=== PATIENT | female | born 1980 | race Caucasian/White ===

== ENCOUNTER 2019-10-06 12:36 | Outpatient (CLI) | payer OTHER, SELFPAY ==
--- NOTE | ~2019-10-06 | US_ITS ---
EXAMINATION: US pelvic complete w TV EXAM DATE: 10/06/2019 13:37 INDICATION: Pelvic pain. TECHNIQUE: Pelvic transabdominal and transvaginal sonogram was performed. There are multiple graysca le and Doppler images available for interpretation. Comparison is made to prior examination from 2012. FINDINGS: Uterus measures 9.1 x 4.4 x 4.0 cm, and is morphologically normal. Endometrial stripe narayan sures 2 mm, within normal limits. There is small free pelvic fluid. Right adnexa: The ovary measures 2.6 x 2.3 x 2.0 cm and is morphologically normal. Ovarian vascular f low confirmed. Left adnexa: The ovary measures 3.2 x 3.7 x 3.4 cm and is morphologically normal, contains the domina nt physiologic follicle. Ovarian vascular flow confirmed. IMPRESSION: 1. Unremarkable pelvic ultrasound exam. Reviewed, dictated and finalized at location A.
== END 2019-10-06 12:37 | disposition home or self-care (01) ==
PROVIDERS: PCP Family Medicine Adolescent Medicine; Visit Provider Obstetrics & Gynecology
DX: R10.2 Pelvic and perineal pain (principal)
CPT/HCPCS: 76830; 76856

== ENCOUNTER 2020-01-12 15:41 | Outpatient (CLI) | payer OTHER, SELFPAY | END 2020-01-12 15:42 | disposition home or self-care (01) | PROVIDERS: PCP Family Medicine Adolescent Medicine; Visit Provider Urology | DX: N39.3 Stress incontinence (female) (male) (principal) | CPT/HCPCS: 87077; 87086; 87088 ==

== ENCOUNTER 2020-01-21 00:43 | Outpatient (CLI) | payer OTHER, SELFPAY ==
[2020-01-21 18:19] LABS: SARS-CoV-2 RNA PCR Negative
== END 2020-01-21 00:44 | disposition home or self-care (01) ==
LOC: ANHCOVIDDT 00:43
PROVIDERS: PCP Family Medicine Adolescent Medicine; Visit Provider Urology
DX: Z01.812 Encounter for preprocedural laboratory examination (principal); Z20.828 Contact with and (suspected) exposure to other viral communicable diseases
CPT/HCPCS: 87635; C9803; U0003

== ENCOUNTER 2020-01-23 01:11 | Day surgery (SDC) | payer OTHER, SELFPAY ==
[2020-01-12 13:41] VITALS: BMI 24.8
--- NOTE | 2020-01-18 19:44 | PM.IMHP ---
H&P: HPI History of Present Illness Date/Time: 01/18/20 19:44 Chief complaint: Stress Incontinence Narrative: Hilda Perez is a 39 year old female with LACY. Component of PFD as well PMFSH Social History Social History Smoking status: Never smoker Second hand tobacco smoke exposure: No Smoking end date: 05/28/08 Alcohol intake: current Drinks per week: 2 Spiritual care concerns: No Meds Home Medications and Allergies Home Medications Medication Instructions Recorded Confirmed Type Saccharomyces boulardii 250 mg 250 mg PO DAILY 12/22/19 01/12/20 History capsule Allergies Allergy/AdvReac Type Severity Reaction Status Date / Time No Known Allergies Allergy Unknown Verified 01/12/20 15:08 Exam Const: General: no acute distress HENMT: Mouth: Yes moist mucous membranes Eyes: General: appearance normal, both eyes and all related structures Resp: Effort & Inspection: normal respiratory effort GI: GI Palp: Yes Soft to palpation : Other: + urethral hypermobility Skin: General skin exam: no rashes or lesions noted Neuro: Motor exam (neuro): Normal motor muscle tone present throughout Extrem: General: normal to inspection Psych: Affect: normal affect Assessment and Plan Assessment and plan (1) LACY (stress urinary incontinence, female): Code(s): N39.3 - Stress incontinence (female) (male) Status: Acute Assessment and Plan: Urethral sling (2) Pelvic floor dysfunction: Code(s): M62.89 - Other specified disorders of muscle Status: Acute
--- NOTE | 2020-01-22 11:48 | WPDANESEPPF ---
Anes - Initial Pre Proc Eval Procedure: Operation Date: 01/23/20 10:15 Proposed Procedures p Urethral Sling - Jer Turner MD Date/Time: 01/22/20 11:48 Surgeon: Jer Turner MD Pre Op Diagnosis: Stress Incontinence Patient Data Age: 39 Gender: F Height: 1.63 m Weight: 65.77 kg Allergies Allergy/AdvReac Type Severity Reaction Status Date / Time No Known Allergies Allergy Unknown Verified 01/12/20 15:08 Home Medications Medication Instructions Recorded Confirmed Type Saccharomyces boulardii 250 mg 250 mg PO DAILY 12/22/19 01/12/20 History capsule Patient hx anesthesia problems: none Family hx anesthesia problems: none [facility] Social History Social History Smoking status: Never smoker Second hand tobacco smoke exposure: No Smoking end date: 05/28/08 Alcohol intake: current Drinks per week: 2 Spiritual care concerns: No Anes - Eval Final PreProcedure Day of Procedure 01/22/20 11:48 Patient weight: normal Heart: regular rate and rhythm Lungs: clear to auscultation and normal air movement Airway: Mallampati scale class II Neurological: alert and oriented Last oral intake: >/= 8 hours ASA classification: II Emergent: no Anesthetic plan: proceed Anesthesia type and monitoring: general GIVS and standard monitoring Informed Consent: The patient's anesthetic plan and its attendant risks and benefits were discussed with the patient/family/POA. Questions were solicited and answers provided to the satisfaction of the patient/family/POA.
--- NOTE | 2020-01-23 07:18 | WPDHPUPDATE1 ---
History and Physical Update Update Date/Time: 01/23/20 07:18 History and Physical has been reviewed, including an updated exam of the patient. There are NO changes in the patient's condition. Risks, benefits, and alternatives have been discussed and questions answered. Patient agrees to proceed with procedure.
[2020-01-23 08:30] VITALS: BP 114/78; PULSE 59; RESP 18; TEMP 36.8; O2SAT 98
[2020-01-23] MEDS: LACTATED RINGERS 1,000 ML 30 ML IV CONT (09:00)
--- NOTE | 2020-01-23 09:51 | PM.PROC ---
Procedure Note - Detailed Pre-op diagnosis: Stress Incontinence Stress urinary incontinence Post-op diagnosis: same Procedure performed: Transobturator Mid-urethral sling Cystoscopy Description of procedure: This is a patient with confirmed stress urinary incontinence. She desires correction. She understands the risks of bleeding, infection, damage to the urinary tract, lack of cure of stress incontinence, recurrence of stress incontinence, postoperative voiding dysfunction including incontinence and retention, need for ancillary procedures to loosen remove the sling, postoperative voiding dysfunction including retention and overactive bladder, hip and leg pain, dyspareunia, mesh related complications including exposure and extrusion. She agrees to proceed. She understands it will not help overactive bladder symptoms if present. She was correctly identified and informed consent obtained. She is brought to the operating room. She was given appropriate anesthesia. She was placed in the dorsal lithotomy position. All pressure points were padded. She was given appropriate perioperative antibiotics and a time-out performed. A Dolan catheter is placed. I marked out the thigh incisions anesthetize the skin and made those incisions. I anesthetized the anterior vaginal wall over the mid urethra. I made a 1 cm incision. I dissected out laterally taking great care not to injure the urethra or the vaginal wall. Passed the helical trocars 1st on the left and then on the right from the thigh incision towards the vaginal incision. Sling was connected to the trocars and brought out through the thigh incision. I tensioned the sling appropriately. I cut and removed the plastic sheaths. I closed the incision with 2 0 Vicryl. I then performed cystoscopy. There was no surgical artifact or abnormalities inside the bladder. The urethra was normal without surgical artifact. I cut the excess sling material. I closed the incisions with glue. She was awakened and transferred to the PACU in stable condition. Implants: Mid urethral sling Surgeon: Jer Turner MD Drains: No Packing: No Pathology: none sent Complications: No immediate complications Condition: stable Disposition: PACU
[2020-01-23] MEDS: ceFAZolin 2 GM/D5W 50 ML 2 GM/50 ML BAG IVPB (10:20)
[2020-01-23] MEDS: BUPIVACAINE/EPINEPHRINE 0.25% 50 ML VIAL 10 ML INFILTRATE (10:45)
[2020-01-23 10:51] VITALS: BP 116/77; PULSE 66; RESP 14; O2SAT 97
[2020-01-23 11:21] VITALS: BP 125/80; PULSE 50; RESP 14
== END 2020-01-23 11:40 | disposition home or self-care (01) ==
PROVIDERS: PCP Family Medicine Adolescent Medicine; Referring Provider Obstetrics & Gynecology; Visit Provider Urology
PROC: (CPT 57288; principal; 2020-01-23 10:15)
DX: N39.3 Stress incontinence (female) (male) (principal); M62.89 Other specified disorders of muscle; J45.909 Unspecified asthma, uncomplicated; Z79.899 Other long term (current) drug therapy
CPT/HCPCS: 57288; A9270; C1771; J0690; J2250; J2704; J3010; J7030; J7120

== ENCOUNTER 2020-06-15 14:57 | Outpatient (CLI) | payer OTHER, SELFPAY ==
[2020-06-15 17:35] LABS: Hepatitis C Virus Antibody Negative (Negative)
[2020-06-16 11:06] LABS: Rapid Plasma Reagin Non-Reactive (NonReactive)
[2020-06-18 18:57] LABS: HSV 1 IgM Screen Negative (Negative); HSV 2 IgM Screen Negative (Negative)
== END 2020-06-15 14:58 | disposition home or self-care (01) ==
LOC: ANHLAB 14:59
PROVIDERS: PCP Family Medicine Adolescent Medicine; Visit Provider Obstetrics & Gynecology
DX: Z20.2 Contact with and (suspected) exposure to infections with a predominantly sexual mode of transmission (principal)
CPT/HCPCS: 36415; 86592; 86695; 86696; 86803

== ENCOUNTER 2021-01-20 15:41 | Outpatient (CLI) | payer OTHER, SELFPAY ==
[2021-01-20 16:01] LABS: Basophils Absolute Auto 0.1 K/mm3 (0.0-0.1); Basophils Percent Auto 0.8 % (0.2-1.2); Eosinophils Absolute Auto 0.1 K/mm3 (0-0.3); Eosinophils Percent Auto 1.9 % (0-4.4); Hematocrit 40.5 % (37.0-47.0); Hemoglobin 13.7 g/dL (12.0-15.0); Immature Granulocyte Absolute 0.01 K/mm3 (0.00-0.031); Immature Granulocyte Percent A 0.2 % (0-0.5); Lymphocytes Absolute Auto 2.58 K/mm3 (0.9-3.2); Lymphocytes Percent Auto 43.7 % (18.3-44.2); Mean Corpuscular HGB Conc 33.8 g/dl (32-36); Mean Corpuscular Hemoglobin 30.5 pg (26-34); Mean Corpuscular Volume 90.2 fl (80-100); Mean Platelet Volume 8.9 fl (7.4-10.4); Monocytes Absolute Auto 0.4 K/mm3 (0.1-0.6); Monocytes Percent Auto 7.1 % (2.6-8.5); Neutrophils Absolute Auto 2.7 K/mm3 (1.3-6.7); Neutrophils Percent Auto 46.3 % (45.5-73.1); Platelet Count Result 230 k/mm3 (150-375); Red Blood Count 4.49 M/mm3 (4.2-5.4); Red Cell Distribution Width 11.3 % (11.5-14.5); White Blood Count 5.9 K/mm3 (4.5-10.0)
[2021-01-20 16:19] LABS: Alanine Aminotransferase 15 U/L (4-35); Albumin Level 4.2 g/dL (3.5-5.1); Alkaline Phosphatase 48 U/L (38-126); Anion Gap 7 mmol/L (8-16); Aspartate Amino Transferase 21 U/L (14-36); Bilirubin,Total 0.7 mg/dL (0.2-1.3); Blood Urea Nitrogen 13 mg/dL (7-17); Calcium 9.3 mg/dL (8.4-10.2); Carbon Dioxide 26 mmol/L (22-30); Chloride 101 mmol/L (98-107); Cholesterol 135 mg/dL (0-200); Estimated Glomerular Filt Rate > 60; Glucose 80 mg/dL (65-110); HDL Direct 59 mg/dL; Potassium 3.8 mmol/L (3.4-5.0); Sodium 134 mmol/L (137-145); Triglycerides 34 mg/dL (<150)
[2021-01-20 16:30] LABS: LDL Cholesterol Direct 64 mg/dL
[2021-01-20 16:47] LABS: Thyroid Stimulating Hormone 0.981 uIU/mL (0.465-4.680)
[2021-01-20 21:09] LABS: Vitamin D 25 Hydroxy 53.4 ng/mL
== END 2021-01-20 15:42 | disposition home or self-care (01) ==
LOC: ANHLAB 15:43
PROVIDERS: PCP Family Medicine Adolescent Medicine; Visit Provider Obstetrics & Gynecology
DX: N92.6 Irregular menstruation, unspecified (principal)
CPT/HCPCS: 36415; 80053; 80061; 82306; 84443; 85025

== ENCOUNTER 2021-05-04 07:44 | Outpatient (CLI) | payer OTHER, SELFPAY ==
--- NOTE | ~2021-05-04 | US_ITS ---
EXAMINATION: US abdomen complete DATE: 05/04/2021 08:29 INDICATION: Abdominal pain TECHNIQUE: Multiple grayscale and Doppler ultrasound images of the abdomen were obtained. COMPARISON: None available FINDINGS: Bowel gas obscures visualization of the pancreas. The visualized portions of the pancreas a re unremarkable. The liver is normal with normal echogenicity and echotexture. No surface nodularity. Normal hepatopetal flow in the main portal vein. The gallbladder is normal with no abnormal wall thi ckening, pericholecystic fluid or stones. The normal common bile duct measures 3 mm. There was no son ographic Goodson sign. The visualized portions of the aorta and inferior vena cava are normal. The right kidney measures 11.3 x 4.9 x 4.1 cm. The left kidney measures 9.1 x 4.7 x 4.5 cm. The kidne ys demonstrate normal parenchymal echogenicity. There is no hydronephrosis. The spleen is normal in a ppearance and measures 9.5 cm. IMPRESSION: 1. No sonographic correlate for the patient's symptoms. Reviewed, dictated and finalized at location A. 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
== END 2021-05-04 07:45 | disposition home or self-care (01) ==
PROVIDERS: PCP Family Medicine Adolescent Medicine; Visit Provider Nurse Practitioner Family
DX: R10.9 Unspecified abdominal pain (principal)
CPT/HCPCS: 76700

== ENCOUNTER 2022-04-04 15:34 | Outpatient (CLI) | payer OTHER, SELFPAY ==
[2022-04-04 15:50] LABS: Basophils Absolute Auto 0.1 K/mm3 (0.0-0.1); Basophils Percent Auto 0.6 % (0.2-1.2); Eosinophils Absolute Auto 0.1 K/mm3 (0-0.3); Eosinophils Percent Auto 1.4 % (0-4.4); Hematocrit 41.5 % (37.0-47.0); Hemoglobin 13.9 g/dL (12.0-15.0); Immature Granulocyte Absolute 0.02 K/mm3 (0.00-0.031); Immature Granulocyte Percent A 0.3 % (0-0.5); Lymphocytes Absolute Auto 2.37 K/mm3 (0.9-3.2); Lymphocytes Percent Auto 30.4 % (18.3-44.2); Mean Corpuscular HGB Conc 33.5 g/dl (32-36); Mean Corpuscular Hemoglobin 31.5 pg (26-34); Mean Corpuscular Volume 94.1 fl (80-100); Mean Platelet Volume 8.6 fl (7.4-10.4); Monocytes Absolute Auto 0.6 K/mm3 (0.1-0.6); Monocytes Percent Auto 7.3 % (2.6-8.5); Neutrophils Absolute Auto 4.7 K/mm3 (1.3-6.7); Platelet Count Result 273 k/mm3 (150-375); Red Blood Count 4.41 M/mm3 (4.2-5.4); Red Cell Distribution Width 12.4 % (11.5-14.5); White Blood Count 7.8 K/mm3 (4.5-10.0)
[2022-04-04 16:06] LABS: Alanine Aminotransferase 17 U/L (6-35); Albumin Level 4.6 g/dL (3.5-5.1); Alkaline Phosphatase 63 U/L (38-126); Anion Gap 12 mmol/L (8-16); Aspartate Amino Transferase 21 U/L (14-36); Bilirubin,Total 0.3 mg/dL (0.2-1.3); Blood Urea Nitrogen 16 mg/dL (7-17); Calcium 9.2 mg/dL (8.4-10.2); Carbon Dioxide 29 mmol/L (22-30); Chloride 99 mmol/L (98-107); Cholesterol 169 mg/dL (0-200); Estimated Glomerular Filt Rate > 60; Glucose 92 mg/dL (65-110); HDL Direct 90 mg/dL; Sodium 140 mmol/L (137-145); Triglycerides 51 mg/dL (<150)
[2022-04-04 16:16] LABS: LDL Cholesterol Direct 62 mg/dL
== END 2022-04-04 15:35 | disposition home or self-care (01) ==
LOC: ANHLAB 15:36
PROVIDERS: PCP Internal Medicine; Visit Provider Nurse Practitioner
DX: N90.89 Other specified noninflammatory disorders of vulva and perineum (principal); Z13.29 Encounter for screening for other suspected endocrine disorder; Z13.220 Encounter for screening for lipoid disorders
CPT/HCPCS: 36415; 80053; 80061; 85025

== ENCOUNTER 2022-09-15 13:52 | Outpatient (CLI) | payer OTHER, SELFPAY ==
--- NOTE | ~2022-09-15 | MMUS_ITS ---
EXAMINATION: MM diag nalini implant LT w ellen, US breast LT limited HISTORY: Left breast pain TECHNIQUE: Craniocaudal, mediolateral, and mediolateral oblique 3-D tomosynthesis images with implant displacement of the left breast were performed and synthetic 2-D images were generated. Craniocauda l, mediolateral oblique, and mediolateral views of the left breast without implant displacement were obtained using full field digital mammography. CAD analysis was submitted and interpreted. High resol ution limited left breast ultrasound was performed. COMPARISON: No prior mammogram is currently available for comparison. BREAST PARENCHYMAL COMPOSITION: The breasts are heterogeneously dense, which may obscure small masses . FINDINGS: MAMMOGRAPHIC FINDINGS: No suspicious mass, calcification, or architectural distortion are identified to suggest malignancy. No mammographic correlate is identified for the patient's reported left breast pain. ULTRASOUND: There is no evidence of focal abnormal solid or cystic lesion in the vicinity of the patient's report ed left breast pain. IMPRESSION: 1. No specific mammographic or sonographic correlate is identified for the patient's reported left br east pain. Further evaluation at this time should be based on clinical assessment. Continued follow-u p physical examination is recommended. 2. Recommend routine screening mammography in one year. BI-RADS Category 1: Negative Reviewed, dictated and finalized at location A. IMPRESSION: 1. No specific mammographic or sonographic correlate is identified for the maggy ent's reported left breast pain. Further evaluation at this time should be base d on clinical assessment. Continued follow-up physical examination is recommend ed. 2. Recommend routine screening mammography in one year. BI-RADS Category 1: Negative
== END 2022-09-15 13:53 | disposition home or self-care (01) ==
PROVIDERS: PCP Internal Medicine; Visit Provider Registered Nurse
DX: N64.4 Mastodynia (principal)
CPT/HCPCS: 76642; 77061; 77065; G0279

== ENCOUNTER 2022-10-10 12:47 | Outpatient (CLI) | payer OTHER, SELFPAY ==
[2022-10-10 14:08] LABS: Hepatitis B Surface Antigen Negative (Negative)
[2022-10-10 14:12] LABS: HIV 1/2 Ab P24 Ag Result Negative (Negative)
[2022-10-10 14:25] LABS: Hepatitis C Virus Antibody Negative (Negative)
[2022-10-11 10:57] LABS: Rapid Plasma Reagin Non-Reactive (NonReactive)
[2022-10-16 17:41] LABS: HSV 1 IgM Screen Negative (Negative); HSV 2 IgM Screen Negative (Negative)
== END 2022-10-10 12:48 | disposition home or self-care (01) ==
PROVIDERS: PCP Internal Medicine; Visit Provider Registered Nurse
DX: Z20.2 Contact with and (suspected) exposure to infections with a predominantly sexual mode of transmission (principal)
CPT/HCPCS: 36415; 86592; 86695; 86696; 86703; 86803; 87340; G0432

== ENCOUNTER 2022-11-01 19:27 | Emergency (ER) | payer OTHER, SELFPAY ==
[2022-11-01] VITALS (12 sets, daily range): BP systolic 105–136; BP diastolic 67–96; PULSE 64–91; RESP 15–18; TEMP 37.1; O2SAT 95–100
--- NOTE | ~2022-11-01 | CT_ITS ---
CT of the Abdomen and Pelvis: Indication: Abdominal pain Technique: 2.5 mm axial scans were obtained through the abdomen and pelvis following intravenous adm inistration of 100 cc of Omnipaque 350. Dose reduction technique was used on this scan by utilizing a utomated exposure control and iterative reconstruction technique. The dose-length product (DLP) was 3 81.57 mGy-cm. COMPARISON: 09/23/2017 Findings: Scans through the lung bases are unremarkable. The liver, spleen, pancreas, gallbladder, adrenals and kidneys are within normal limits. No evidence of aortic aneurysm. No lymphadenopathy. No bowel obstruction or bowel wall thickening. There is no evidence to suggest acute appendicitis. Images through the pelvis were performed. Urinary bladder unremarkable. 4.3 cm left adnexal cyst pres ent. No other definite adnexal mass seen. There is trace free fluid in the pelvis. Impression: 4.3 cm probable left ovarian cyst. Consider pelvic ultrasound for further evaluation if indicated. Trace free fluid in the pelvis, nonspecific. Reviewed, dictated and finalized at location . Impression: 4.3 cm probable left ovarian cyst. Consider pelvic ultrasound for further evalu ation if indicated. Trace free fluid in the pelvis, nonspecific.
[2022-11-01 19:49] LABS: Basophils Percent Auto 0.2 % (0.2-1.2); Eosinophils Percent Auto 0.8 % (0-4.4); Hematocrit 41.9 % (37.0-47.0); Hemoglobin 14.2 g/dL (12.0-15.0); Immature Granulocyte Absolute 0.01 K/mm3 (0.00-0.031); Immature Granulocyte Percent A 0.2 % (0-0.5); Lymphocytes Absolute Auto 0.39 K/mm3 (0.9-3.2); Lymphocytes Percent Auto 7.6 % (18.3-44.2); Mean Corpuscular HGB Conc 33.9 g/dl (32-36); Mean Corpuscular Hemoglobin 31.2 pg (26-34); Mean Corpuscular Volume 92.1 fl (80-100); Mean Platelet Volume 8.7 fl (7.4-10.4); Monocytes Absolute Auto 0.3 K/mm3 (0.1-0.6); Monocytes Percent Auto 6.1 % (2.6-8.5); Neutrophils Absolute Auto 4.4 K/mm3 (1.3-6.7); Neutrophils Percent Auto 85.1 % (45.5-73.1); Platelet Count Result 192 k/mm3 (150-375); Red Blood Count 4.55 M/mm3 (4.2-5.4); Red Cell Distribution Width 13.4 % (11.5-14.5); White Blood Count 5.1 K/mm3 (4.5-10.0)
[2022-11-01 20:01] LABS: Alanine Aminotransferase 18 U/L (6-35); Albumin Level 3.7 g/dL (3.5-5.1); Alkaline Phosphatase 44 U/L (38-126); Anion Gap 2 mmol/L (8-16); Aspartate Amino Transferase 26 U/L (14-36); Bilirubin,Total 1.1 mg/dL (0.2-1.3); Blood Urea Nitrogen 17 mg/dL (7-17); Calcium 8.1 mg/dL (8.4-10.2); Carbon Dioxide 28 mmol/L (22-30); Chloride 105 mmol/L (98-107); Estimated CRCL calculation 71 ml/min; Estimated Glomerular Filt Rate > 60; Glucose 108 mg/dL (65-110); Lipase 63 U/L (23-300); Potassium 3.7 mmol/L (3.4-5.0); Sodium 135 mmol/L (137-145)
[2022-11-01 20:03] LABS: Appearance Urine Clear (Clear); Bacteria Urine Rare /hpf; Bilirubin Urine Negative (Negative); Blood Urine Negative (Negative); Color Urine Dark Yellow (Yellow); Glucose Urine UA Negative (Negative); Ketones Urine Trace mg/dL (Negative); Leukocyte Esterase Ur 1+ LEU/UL (Negative); Nitrate Urine Negative (Negative); Non Pathogenic Casts 0-2; Protein Urine Trace mg/dL (Negative); RBC Urine 0-2 /hpf (0-2); Specific Grav Ur 1.032 (1.001-1.035); Squamous Epithelial Cell Urine Few /hpf (Few); pH Urine 5.5 (5.0-9.0)
[2022-11-01 20:11] LABS: Add Urine Microscopic? YES
[2022-11-01] MEDS: ONDANSETRON INJ 4 MG/2 ML VIAL IV PUSH (23:10)
[2022-11-01] MEDS: SODIUM CHLORIDE 0.9% IV 1,000 ML 999 ML IV CONT (23:10)
[2022-11-01] MEDS: HYDROmorphone HCL INJ (*CRX) 1 MG/ML SYR 0.5 MG IV PUSH (23:23)
--- NOTE | 2022-11-01 23:54 | ED.GENADULT ---
HPI - General Adult General Chief complaint: Abdominal Pain Stated complaint: abd pain Time Seen by Provider: 11/01/22 21:32 History of Present Illness HPI narrative: this is a 41-year-old female presenting ED with chief complaint of nausea vomiting diarrhea and abdominal pain x1 day. When the patient woke this morning she had an achy pain throughout her abdomen that radiates to her back. Five out 10 intensity and constant. She has never had this before there are no exacerbating alleviating symptoms. Was associated with a fever, nausea vomiting and diarrhea. She has no chest pain difficulty breathing URI symptoms or dysuria. Related Data Home Medications Medication Instructions Recorded Confirmed congaplex .Route 01/20/21 03/15/22 albuterol sulfate 90 mcg/actuation 1 puff inhalation Q4H PRN 03/22/21 03/15/22 aerosol inhaler allergy shots IM 02/07/22 03/15/22 collagen 1 cap BYMOUTH DAILY 03/07/22 various vitamins 1 tablet BYMOUTH DAILY 03/07/22 etonogestrel 68 mg subdermal 1 implant subdermal ONCE 08/29/22 implant (Nexplanon) Allergies Allergy/AdvReac Type Severity Reaction Status Date / Time No Known Allergies Allergy Unknown Verified 11/01/22 21:43 [facility] Past Medical History Medical History Asthma HSV-2 (herpes simplex virus 2) infection Seasonal allergies Vaginal delivery Surgical History Surgical History H/O breast augmentation History of bladder surgery History of dilation and curettage Family History Family History Grandparent Diabetes mellitus, Onset Age: 75 Social History Social History Smoking status: Former smoker Second hand tobacco smoke exposure: No Smoking end date: 05/28/08 Alcohol intake: current Drinks per week: 2 Substance use: never Lack of Transportation: No Lack of Food: Never True Current Housing: I Have Housing Concerned About Future Housing: No Difficulty Paying Gas/Electric Bills: No Difficulty Paying for Meds: No Currently Unemployed: No Education: Master's Degree or Higher Difficulty w/ Childcare or Family Care: No Living arrangements: with family Occupation/Education: occupation Gender identity (if verbalized by the patient): Female Sexual Orientation (if Verbalized by the Patient): Straight or Heterosexual Spiritual care concerns: No Exam Narrative: APPEARANCE: No apparent distress. Patient is pleasant polite Head: atraumatic. EYES: EOMI, NOSE: Atraumatic NECK: Trachea midline RESPIRATORY: No increased rate of breathing CARDIOVASCULAR: RRR, ABDOMINAL: abdomen is soft, With mild tenderness in the right lower quadrant, no guarding or rebound. MUSCULOSKELETAl: No obvious deformities NEURO: Alert. Moving 4/4 extremities SKIN:: Warm, dry. Normal color PSYCHIATRIC: Normal affect Course Vital Signs Vital signs: Vital Signs Temperature 98.7 F 11/01/22 19:36 Pulse Rate 91 11/01/22 19:36 Respiratory Rate 18 11/01/22 19:36 Blood Pressure 128/75 11/01/22 19:36 Pulse Oximetry 99 11/01/22 19:36 Oxygen Delivery Room Air 11/01/22 19:36 Temperature 98.7 F 11/01/22 19:36 Pulse Rate 64 11/01/22 23:25 Respiratory Rate 15 11/01/22 23:25 Blood Pressure 136/96 H 11/01/22 23:25 Pulse Oximetry 98 11/01/22 23:25 Oxygen Delivery Room Air 11/01/22 19:36 Medical Decision Making [facility] Narrative Medical decision making narrative: -Presentation: 41-year-old female presenting with 1 day of fevers nausea vomiting diarrhea and right lower quadrant tenderness. 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
--- NOTE | 2022-11-02 00:11 | PC.NURSE ---
Pt received 2L of normal saline per Dr. Denise. Pharmacy cancelled original 2L bolus order and replaced it with 1L bolus.
[2022-11-02 00:13] VITALS: BP 105/75; PULSE 72; RESP 16; O2SAT 98
== END 2022-11-02 00:13 | disposition home or self-care (01) ==
PROVIDERS: Emergency Provider Emergency Medicine; PCP Internal Medicine
DX: K52.9 Noninfective gastroenteritis and colitis, unspecified (principal); J45.909 Unspecified asthma, uncomplicated; Z87.891 Personal history of nicotine dependence; R82.998 Other abnormal findings in urine
CPT/HCPCS: 36415; 74177; 80053; 81001; 81025; 83690; 85025; 87086; 96361; 96365; 96375; 99284; J0131; J1170; J2405; J7030; Q9967

== ENCOUNTER 2022-11-16 12:47 | Outpatient (CLI) | payer OTHER, SELFPAY ==
--- NOTE | ~2022-11-16 | US_ITS ---
EXAMINATION: US pelvic complete w TV DATE: 11/16/2022 14:18 INDICATION: Left ovarian cyst Comparison:No prior studies for comparison. TECHNIQUE: Multiple transabdominal and endovaginal sonographic images of the pelvis performed. FINDINGS: The uterus measures 8.5 x 3.6 x 4.9 cm. The endometrial complex measures 4 mm. The right ovary is not visualized. Left ovary measures 2.7 x 1.6 x 2.2 cm and contains a 2.2 cm cyst. There is no free fluid in the pelvis. There are no abnormal masses seen on either side. IMPRESSION: 1. Left ovarian cyst measures 2.2 cm. Reviewed, dictated and finalized at location L.
== END 2022-11-16 12:48 | disposition home or self-care (01) ==
PROVIDERS: PCP Internal Medicine; Visit Provider Registered Nurse
DX: N83.202 Unspecified ovarian cyst, left side (principal)
CPT/HCPCS: 76830; 76856

== ENCOUNTER 2023-08-13 07:58 | Outpatient (CLI) | payer OTHER, SELFPAY ==
--- NOTE | ~2023-08-13 | MM_ITS ---
EXAMINATION: MM scrn nalini implant BI w ellen HISTORY: Screening mammogram TECHNIQUE: Craniocaudal and mediolateral oblique 3-D tomosynthesis images with implant displacement a nd synthetic 2-D images were generated. Craniocaudal and mediolateral oblique views of the breasts wi thout implant displacement were obtained using full field digital mammography. CAD analysis was submi tted and interpreted. COMPARISON: 09/15/2022 BREAST PARENCHYMAL COMPOSITION: Dense: The breasts are heterogeneously dense, which may obscure small masses FINDINGS: There is no evidence of suspicious mass, calcification, or architectural distortion to sugg est malignancy in either breast. There has been no suspicious interval change. IMPRESSION: 1. No mammographic evidence of malignancy. 2. Recommend routine screening mammography in one year. BI-RADS Category 1: Negative Reviewed, dictated and finalized at location A.
== END 2023-08-13 07:59 | disposition home or self-care (01) ==
LOC: ANHIMG 08:00
PROVIDERS: PCP Internal Medicine; Visit Provider Nurse Practitioner
DX: Z12.31 Encounter for screening mammogram for malignant neoplasm of breast (principal)
CPT/HCPCS: 77063; 77067

== ENCOUNTER 2023-11-07 09:37 | Outpatient (CLI) | payer OTHER, SELFPAY | END 2023-11-07 09:38 | disposition home or self-care (01) | LOC: ANHIMG 09:38 | PROVIDERS: PCP Internal Medicine; Visit Provider Nurse Practitioner | DX: M79.672 Pain in left foot (principal) | CPT/HCPCS: 73630 ==

== ENCOUNTER 2024-08-13 08:07 | Outpatient (CLI) | payer OTHER, SELFPAY ==
--- NOTE | ~2024-08-13 | MM_ITS ---
EXAMINATION: MM scrn nalini implant BI w ellen HISTORY: Screening mammogram TECHNIQUE: Craniocaudal and mediolateral oblique 3-D tomosynthesis images with implant displacement a nd synthetic 2-D images were generated. Craniocaudal and mediolateral oblique views of the breasts wi thout implant displacement were obtained using full field digital mammography. CAD analysis was submi tted and interpreted. COMPARISON: Comparison to multiple prior studies sequentially, with oldest reviewed study dated 09/15. BREAST PARENCHYMAL COMPOSITION: Dense: The breasts are heterogeneously dense, which may obscure small masses FINDINGS: There is no evidence of suspicious mass, calcification, or architectural distortion to sugg est malignancy in either breast. There has been no suspicious interval change. IMPRESSION: 1. No mammographic evidence of malignancy. 2. Recommend routine screening mammography in one year. BI-RADS Category 1: Negative Reviewed, dictated and finalized at location []
--- OUTSIDE RECORDS SUMMARY | 2024-08-13 08:18 | XMS_ITS | Clinical Summary ---
Author Organization [facility] Address [address] [place] [id number] Care Team Providers Care Advanced Analytics Associate Name Role Phone Wilner Lewis MD Primary Care Provider [phone] Medications NEXPLANON 68 MG SC implant 04/01/2020 Active ibuprofen 200 MG tablet Take 200 mg by mouth every 6 (six) hours as needed for Pain. Active Active Problems No known active problems Family History Medical History Relation Comments No Known Problems Brother No Known Problems Father No Known Problems Maternal Aunt No Known Problems Maternal Grandfather No Known Problems Maternal Grandmother No Known Problems Maternal Uncle No Known Problems Mother No Known Problems Paternal Aunt No Known Problems Paternal Grandmother No Known Problems Paternal Uncle No Known Problems Sister Relation Status Comments Brother Father Maternal Aunt Maternal Grandfather Maternal Grandmother Maternal Uncle Mother Paternal Aunt Paternal Grandmother Paternal Uncle Sister Social History Tobacco Use Types Packs/Day Years Used Date Smoking Tobacco: Never Smokeless Tobacco: Never Tobacco Cessation:Counseling Given: No Alcohol Use Standard Drinks/Week Comments Yes 0 (1 standard drink = 0.6 oz pur e alcohol) socially PHQ-2 Answer Date Recorded PHQ-2 Score - If the patient scores above 3, please move on to questions 3-9 0 08/16/2020 Comments Unknown Sex and Gender Information Value Date Recorded Sex Assigned at Not on file Legal Sex Female 7:33 PM CDT Gender Identity Not on file Sexual Orientation Not on file Last Filed Vital Signs Vital Sign Reading Time Taken Comments Blood Pressure 110/66 08/16/2020 10:59 AM CDT Pulse 59 08/16/2020 10:59 AM CDT Temperature - - Respiratory Rate - - Oxygen Saturation - - Inhaled Oxygen Concentration - - Weight 72.1 kg (159 lb) 08/16/2020 10:59 AM CDT Height 162.6 cm (5' 4 ) 08/16/2020 10:59 AM CDT Body Mass Index 27.29 08/16/2020 10:59 AM CDT Plan of Treatment Health Maintenance Due Date Last Done Comments Cervical Cancer Screening Pa p Smear (Age 30 to 64) Every 3 Years 1980 Annual Physical 1985 Hepatitis C 2000 DTaP, Tdap and Td Vaccines ( 1 - Tdap) 2001 Hepatitis B Vaccines (1 of 3 - 19+ 3-dose series) 2001 Cervical Cancer Screening Pa p with HPV Testing (Age 30 to 64) Every 5 Years 2012 Cervical Cancer Screening with HPV 2012 Mammogram Screening 2022 COVID-19 Vaccine (2023-2 5 season) 2024 Influenza Adult (#1) 2024 HPV Vaccines Aged Out No longer eligi ble based on patient's age to complete this topic Meningococcal B Vaccine Aged Out No l onger eligible based on patient's age to complete this topic Meningococcal Vaccine Aged Out No bebeto bob eligible based on patient's age to complete this topic Pneumococcal Vaccine: Pediat rics (0 to 5 Years) and At-Risk Patients (6 to 64 Years) Aged Out No longer eligible b ased on patient's age to complete this topic RSV Immunizations Under 20 Months Aged Out No longer eligible based on patient's age to complete this topic Insurance * Guarantor: Hilda Perez Account Type Relation to Patient Date of Phone Billing Address Personal/Family Self 1980 [phone] (Work) [address] [place] [address] [employer] Care Teams Advanced Analytics Associate Relationship Specialty Start Date End Date Wilner Lewis MD [address] [address] PCP - General FAMILY PRACTICE 08/16/20
--- OUTSIDE RECORDS SUMMARY | 2024-08-13 08:18 | XMS_ITS ---
Author Organization [facility] Address [address] [place] [address] Care Team Providers Care Customer Associate Name Role Phone Galilea Oliveros Primary Care Provider Michelle Vela Unavailable [phone] Wilner Wade Unavailable [phone] REASON FOR VISIT SCIT - Traditional Schedule Allergy Immunotherapy (Week ) Encounters Encounter Location Date Provider Diagnosis [facility] [address] [place] [address] 07/10/2024 Wilner Wade Allergic rhinitis du e [...] scheduled, Jana son: Provider Name:Wilner Wade , 08/13/2024 03:30:00 PM, [address], [address], [place], [address], Progress Notes * Santiago SOFIAOB:1980 (43 yo F)Acc No.[id number]:07/10/2024 SCIT-Aeroallergen Patient: Hilda HANLEY Provider: Callie Wade MD :1980 A ge:43 Y S ex:Female Date:07/10/2024 Address:[address] [place] [address] Pcp:Galilea Oliveros Subjective: * Chief Complaints: * [...] Information: * Visit Code: * Procedure Codes: 54452 IMMUNOTHERAPY INJECTIONS. * Electronic signature of Chana Wade MD, FAAAAI on 08/13/2024 at 08:18 AM CDT Sign off status: Pending * Provider: Callie Wade MD Date: 0 07/10/2024 Generated for Clem mckenzie/Kelvin/Mu on: 0 08/13/2024 08:18 AM CDT History and Physical Notes * HPI [...]
--- OUTSIDE RECORDS SUMMARY | 2024-08-13 08:18 | XMS_ITS ---
Author Organization [facility] Address [address] [place] [address] Care Team Providers Care Potato Chip Maker Name Role Phone Galilea Oliveros Primary Care Provider Radha francis RubensMichelle Unavailable [phone] Wilner Wade Unavailable [phone] REASON FOR VISIT SCIT - Traditional Schedule Allergy Immunotherapy (Week ) Medications Medication SIG (Take, Route, Frequency, Duration) Notes Start Date End Date Status Xyzal Allergy 24HR 5 MG 1 tablet PO daily for 30 Not-Taking Singulair 10 MG 1 tab(s) orally on days of immunotherapy for 90 days Not-Taking ZANTAC 150 150 MG 1 TAB(S) ORALLY ON DAYS OF IMMUNOTHERAPY. for 90 DAYS *Please review for potential replacement for e-prescription and drug interaction check* Not-Taking Benadryl Allergy 25 MG 1 cap(s) orally PRN Not-Taki ng Sudafed 30 MG 1 tab(s) orally every 6 hours, prn Not-Taking PROAIR HFA 90 MCG/INH 2 PUFF(S) INHALED 4 TIMES A DAY, PRN *Please review for potential replacement for e-prescription and drug interaction check* Not-Taking Nexplanon 68 MG 1 ea subcutaneously once Active SIT (TRADITIONAL) VARIABLE PER SCHEDULE SC PER SCHEDULE for TO BE DETERMINED *Please review for potential replacement for e-prescription and drug interaction check* Active Pataday 0.2 % 1 gtt in each affected eye once a day, PRN for 30 day(s) Not-Taking Xyzal Allergy 24HR 5 MG 1 tablet PO Qday, PRN Not-Taking ZyrTEC Allergy 10 MG 1 tab(s) orally on days of shots Active Airsupra 90 MCG-80 MCG/INH 2 INH INHALED 4 TIMES A DAY *Please review and pick correct strength-formula tion from [employer] options. If intended option is not shown, discontinue and re-order from Quick Search* Active SIT (TRADITIONAL) VARIABLE PER SCHEDULE SC PER SCHEDULE for 1 DAYS *Please review for potential replacement for e-prescription and drug interaction check* Active Auvi-Q 0.3 MG/0.3ML as directed intramuscularly once for 30 days Active ALBUTEROL (EQV-PROVENTIL HFA) 90 MCG/INH 2 PUFF(S) INHALED EVERY 6 HOURS *Please review for potential replacement for e-prescription and drug interaction check* Active SIT (CLUSTER) variable per schedule per schedule for 1 days Active EPINEPHRINE AUTO-INJECTOR 0.3 mg as directed intramuscularly once for 1 days Active NASAL WASHES N/A as directed intranasally as needed for 30 Active ZYRTEC 10 mg 1 tab(s) orally on days of shots Active AIRSUPRA 90 mcg-80 mcg/inh 2 INH inhaled 4 times a day Active SINGULAIR 10 mg 1 tab(s) orally on days of immunotherapy for 90 days Not-Taking XYZAL 5 mg 1 tablet PO daily for 30 Not-Taking NASACORT ALLERGY 24HR 55 mcg/inh 2 spray(s) intranasally once a day for 30 day(s) Not-Taking BENADRYL 25 mg 1 cap(s) orally PRN Not-Taking SUDAFED 30 mg 1 tab(s) orally every 6 hours, prn Not-Taking NEXPLANON 68 mg 1 ea subcutaneously once Active PATADAY 0.2% 1 gtt in each affected eye once a day, PRN for 30 day(s) Not-Taking XYZAL 5 mg 1 tablet PO Qday, PRN Not-Taking SIT (CLUSTER) VARIABLE PER SCHEDULE SC PER SCHEDULE for TO BE DETERMINED *Please review for potential replacement for e-prescription and drug interaction check* Not-Taking AUVI-Q 0.3 mg as directed intramuscularly once for 30 days Active OLOPATADINE HYDROCHLORIDE 665 MCG/INH 2 SPRAY(S) INTRANASALLY 2 TIMES A DAY, PRN for 30 DAY(S) *Please review for potential replacement for e-prescription and drug interaction check* Not-Taking Nasacort Allergy 24HR 55 MCG/ACT 2 spray(s) intranasally once a day for 30 day(s) Not-Taking Encounters Encounter Location Date Provider Diagnosis [facility] [address] [facility] [address] [place] [address] 07/16/2024 Wilner Mauro Allergic rhinitis du e to pollen J30.1 ; Other allergic rhinitis J30.89 ; Allergic rhinitis due to animal (cat) (dog) hair and dander J30.81 and Other chronic allergic conjunctivitis H10.45 Assessments Encounter Date Diagnosis (ICD Code) Assessment Notes Treatment Notes Treatment Clinical Notes Section Notes 07/16/2024 Allergic rhinitis due to pollen (ICD-10 - J30.1) 07/16/2024 Other allergic rhinitis (ICD-10 - J30.89) 07/16/2024 Allergic rhinitis due to animal (cat) (dog) hair and dander (ICD-10 - J30.81) 07/16/2024 Other chronic allergic conjunctivitis (ICD-10 - H10.45) Plan Of Treatment Next Appt Details Follow Up: As scheduled, Jana son: Provider Name:Wilner Jeanne Mauro , 08/13/2024 03:30:00 PM, [address], [address], [place], [address], Progress Notes * Santiago SOFIAOB:1980 (43 yo F)Acc No.[id number]:07/16/2024 SCIT-Aeroallergen Patient: Hilda HANLEY Provider: Callie Wade MD :1980 A ge:43 Y S ex:Female Date:07/16/2024 Address:[address] [place], [place] [id number] Pcp:Galilea Oliveros Subjective: * Chief Complaints: * S CIT - Traditional Schedule Allergy Immunotherapy (Week ) * HPI: * Introduction: The patient is [...] immunotherapy) is on file. * Medical History: * Surgical History: * Hospitalization/Major Diagno stic Procedure: * Medications: T akingAUVI-Q 0.3 mg kit as directed intramuscularly once NEXPLANON 68 mg implant 1 ea subcutaneously once NASAL WASHES N/A 1 quart of sterilized tap water or distilled water, 1 tsp NaCl, 1 pinch of baking soda as directed intranasally as needed ZYRTEC 10 mg tablet 1 tab(s) orally on days of shots AIRSUPRA 90 mcg-80 mcg/inh aerosol 2 INH inhaled 4 times a day SIT (CLUSTER) variable see record per schedule per schedule EPINEPHRINE AUTO-INJECTOR 0.3 mg kit as directed intramuscularly once ZyrTEC Allergy 10 MG Tablet 1 tab(s) orally on days of shots Airsupra 90 MCG-80 MCG/INH AEROSOL 2 INH INHALED 4 TIMES A DAY , Notes to Pharmacist: *Please review and pick correct strength-formulation from [employer] options. If intended option is not shown, discontinue and re-order from Quick Search*SIT (TRADITIONAL) VARIABLE SEE RECORD PER SCHEDULE SC PER SCHEDULE , Notes to Pharmacist: *Please review for potential replacement for e-prescription and drug interaction check*Auvi-Q 0.3 MG/0.3ML Solution Auto-injector as directed intramuscularly once ALBUTEROL (EQV-PROVENTIL HFA) 90 MCG/INH AEROSOL 2 PUFF(S) INHALED EVERY 6 HOURS , Notes to Pharmacist: *Please review for potential replacement for e-prescription and drug interaction check*Nexplanon 68 MG Implant 1 ea subcutaneously once SIT (TRADITIONAL) VARIABLE SEE RECORD PER SCHEDULE SC PER SCHEDULE , Notes to Pharmacist: *Please review for potential replacement for e-prescription and drug interaction check*Taking AUVI- Q 0.3 mg kit as directed intramuscularly once Taking NEXPLANON 68 mg implant 1 ea subcutaneously once Taking NASAL WASHES N/A 1 quart of sterilized tap water or distilled water, 1 tsp NaCl, 1 pinch of baking soda as directed intranasally as needed Taking ZYRTEC 10 mg tablet 1 tab(s) orally on days of shots Taking AIRSUPRA 90 mcg-80 mcg/inh aerosol 2 INH inhaled 4 times a day Taking SIT (CLUSTER) variable see record per schedule per schedule Taking EPINEPHRINE AUTO-INJECTOR 0.3 mg kit as directed intramuscularly once Taking ZyrTEC Allergy 10 MG Tablet 1 tab(s) orally on days of shots Taking Airsupra 90 MCG-80 MCG/INH AEROSOL 2 INH INHALED 4 TIMES A DAY , Notes to Pharmacist: *Please review and pick correct strength-formulation from [employer] options. If intended option is not shown, discontinue and re-order from Quick Search*Taking SIT (TRADITIONAL) VARIABLE SEE RECORD PER SCHEDULE SC PER SCHEDULE , Notes to Pharmacist: *Please review for potential replacement for e-prescription and drug interaction check*Taking Auvi-Q 0.3 MG/0.3ML Solution Auto-injector as directed intramuscularly once Taking ALBUTEROL (EQV-PROVENTIL HFA) 90 MCG/INH AEROSOL 2 PUFF(S) INHALED EVERY 6 HOURS , Notes to Pharmacist: *Please review for potential replacement for e-prescription and drug interaction check*Taking Nexplanon 68 MG Implant 1 ea subcutaneously once Taking SIT (TRADITIONAL) VARIABLE SEE RECORD PER SCHEDULE SC PER SCHEDULE , Notes to Pharmacist: *Please review for potential replacement for e-prescription and drug interaction check*Not-Taking/PRNPATADAY 0.2% solution 1 gtt in each affected eye once a day, PRN XYZAL 5 mg tablet 1 tablet PO Qday, PRN XYZAL 5 mg tablet 1 tablet PO daily SINGULAIR 10 mg tablet 1 tab(s) orally on days of immunotherapy BENADRYL 25 mg capsule 1 cap(s) orally PRN SUDAFED 30 mg tablet 1 tab(s) orally every 6 hours, prn NASACORT ALLERGY 24HR 55 mcg/inh spray 2 spray(s) intranasally once a day Pataday 0.2 % Solution 1 gtt in each affected eye once a day, PRN Xyzal Allergy 24HR 5 MG Tablet 1 tablet PO Qday, PRN PROAIR HFA 90 MCG/INH AEROSOL 2 PUFF(S) INHALED 4 TIMES A DAY, PRN , Notes to Pharmacist: *Please review for potential replacement for e-prescription and drug interaction check*Xyzal Allergy 24HR 5 MG Tablet 1 tablet PO daily Singulair 10 MG Tablet 1 tab(s) orally on days of immunotherapy ZANTAC 150 150 MG TABLET 1 TAB(S) ORALLY ON DAYS OF IMMUNOTHERAPY. , Notes to Pharmacist: *Please review for potential replacement for e-prescription and drug interaction check*Benadryl Allergy 25 MG Capsule 1 cap(s) orally PRN Sudafed 30 MG Tablet 1 tab(s) orally every 6 hours, prn Nasacort Allergy 24HR 55 MCG/ACT Aerosol 2 spray(s) intranasally once a day OLOPATADINE HYDROCHLORIDE 665 MCG/INH SPRAY 2 SPRAY(S) INTRANASALLY 2 TIMES A DAY, PRN , Notes to Pharmacist: *Please review for potential replacement for e-prescription and drug interaction check*SIT (CLUSTER) VARIABLE SEE RECORD PER SCHEDULE SC PER SCHEDULE , Notes to Pharmacist: *Please review for potential replacement for e-prescription and drug interaction check*Not-Taking/PRN PATADAY 0.2% solution 1 gtt in each affected eye once a day, PRN Not-Taking/PRN XYZAL 5 mg tablet 1 tablet PO Qday, PRN Not-Taking/PRN XYZAL 5 mg tablet 1 tablet PO daily Not-Taking/PRN SINGULAIR 10 mg tablet 1 tab(s) orally on days of immunotherapy Not-Taking/PRN BENADRYL 25 mg capsule 1 cap(s) orally PRN Not-Taking/PRN SUDAFED 30 mg tablet 1 tab(s) orally every 6 hours, prn Not-Taking/PRN NASACORT ALLERGY 24HR 55 mcg/inh spray 2 spray(s) intranasally once a day Not-Taking/PRN Pataday 0.2 % Solution 1 gtt in each affected eye once a day, PRN Not-Taking/PRN Xyzal Allergy 24HR 5 MG Tablet 1 tablet PO Qday, PRN Not-Taking/PRN PROAIR HFA 90 MCG/INH AEROSOL 2 PUFF(S) INHALED 4 TIMES A DAY, PRN , Notes to Pharmacist: *Please review for potential replacement for e-prescription and drug interaction check*Not- Taking/PRN Xyzal Allergy 24HR 5 MG Tablet 1 tablet PO daily Not-Taking/PRN Singulair 10 MG Tablet 1 tab(s) orally on days of immunotherapy Not-Taking/PRN ZANTAC 150 150 MG TABLET 1 TAB(S) ORALLY ON DAYS OF IMMUNOTHERAPY. , Notes to Pharmacist: *Please review for potential replacement for e-prescription and drug interaction check*Not-Taking/PRN Benadryl Allergy 25 MG Capsule 1 cap(s) orally PRN Not-Taking/PRN Sudafed 30 MG Tablet 1 tab(s) orally every 6 hours, prn Not- Taking/PRN Nasacort Allergy 24HR 55 MCG/ACT Aerosol 2 spray(s) intranasally once a day Not-Taking/PRN OLOPATADINE HYDROCHLORIDE 665 MCG/INH SPRAY 2 SPRAY(S) INTRANASALLY 2 TIMES A DAY, PRN , Notes to Pharmacist: *Please review for potential replacement for e-prescription and drug interaction check*Not-Taking/PRN SIT (CLUSTER) VARIABLE SEE RECORD PER SCHEDULE SC PER SCHEDULE , Notes to Pharmacist: *Please review for potential replacement for e-prescription and drug interaction check* Objective: * Vitals: Assessment: * Assessment: 1. A llergic rhinitis due to pollen - J30.1 (Primary) 2 . O ther allergic rhinitis - J30.89 3 . A llergic rhinitis due to animal (cat) (dog) hair and dander - J30.81 4 . O ther chronic allergic conjunctivitis - H10.45 Plan: * Treatment: * Procedure Codes: 9 5117 IMMUNOTHERAPY INJECTIONS * Preventive Medicine: Counseling: E xercise A [...] Information: * Visit Code: * Procedure Codes: 52218 IMMUNOTHERAPY INJECTIONS. * WORK GATHERER Sign off status: Completed true * Provider: Callie Wade MD Date: 07/16/2024 Generated for Clem mckenzie/Kelvin/eTmarla on: 0 08/13/2024 08:17 AM CDT History and Physical Notes * [...]
--- OUTSIDE RECORDS SUMMARY | 2024-08-13 08:18 | XMS_ITS ---
Author Organization [facility] Address [address] [place] [address] Care Team Providers Care Wire Lather Name Role Phone Galilea Oliveros Primary Care Provider Michelle Vela Unavailable [phone] Wilner Wade Unavailable [phone] REASON FOR VISIT SCIT - Traditional Schedule Allergy Immunotherapy (Week ) Encounters Encounter Location Date Provider Diagnosis [facility] [address] [place] [address] 08/13/2024 Wilner Wade Allergic rhinitis du e to pollen J30.1 ; Other allergic rhinitis J30.89 ; Allergic rhinitis due to animal (cat) (dog) hair and dander J30.81 and Other chronic allergic conjunctivitis H10.45 Assessments Encounter Date Diagnosis (ICD Code) Assessment Notes Treatment Notes Treatment Clinical Notes Section Notes 08/13/2024 Allergic rhinitis due to pollen (ICD-10 - J30.1) 08/13/2024 Other allergic rhinitis (ICD-10 - J30.89) 08/13/2024 Allergic rhinitis due to animal (cat) (dog) hair and dander (ICD-10 - J30.81) 08/13/2024 Other chronic allergic conjunctivitis (ICD-10 - H10.45) Plan Of Treatment Next Appt Details Follow Up: As scheduled, Jana son: Provider Name:Wilner Wade , 08/13/2024 03:30:00 PM, [address], [address], [place], [address], Progress Notes * Santiago SOFIAOB:1980 (43 yo F)Acc No.[id number]:08/13/2024 SCIT-Aeroallergen Patient: Hilda HANLEY Provider: Callie Wade MD :1980 A ge:43 Y S ex:Female Date:08/13/2024 Address:[address] [place] [address] Pcp:Galilea Oliveros Subjective: * Chief Complaints: * [...] Information: * Visit Code: * Procedure Codes: 10819 IMMUNOTHERAPY INJECTIONS. * Electronic signature of Chana Wade MD, FAAAAI on 08/13/2024 at 08:18 AM CDT Sign off status: Pending * Provider: Callie Wade MD Date: 08/13/2024 Generated for Clem mckenzie/Kelvin/Mu on: 08/13/2024 08:18 AM CDT History and Physical [...]
== END 2024-08-13 08:08 | disposition home or self-care (01) ==
LOC: ANHIMG 08:09
PROVIDERS: PCP Internal Medicine; Visit Provider Obstetrics & Gynecology
DX: Z12.31 Encounter for screening mammogram for malignant neoplasm of breast (principal); Z98.82 Breast implant status
CPT/HCPCS: 77063; 77067

== ENCOUNTER 2025-03-12 07:33 | Outpatient (CLI) | payer OTHER, SELFPAY ==
--- OUTSIDE RECORDS SUMMARY | 2025-03-12 07:37 | XMS_ITS | Patient Health Record ---
Author Organization [employer] [place] ([address]) Address [address] [place] [address] Care Team Providers Care Sales Product Manager Name Role Phone Galilea Oliveros Primary Care Provider UnavailMichelle Huerta Unavailable [phone] Wilner Wade Unavailable [phone] Klarissa Spicer Unavailable [phone] Allergies No Known Allergies Reason For Referral No Information Medications Medication SIG (Take, Route, Frequency, Duration) Notes Start Date End Date Status SIT (CLUSTER) VARIABLE PER SCHEDULE SC PER SCHEDULE; Duration: TO BE DETERMINED *Please review for potential replacement for e-prescription and drug interaction check* Not-Taking OLOPATADINE HYDROCHLORIDE 665 MCG/INH 2 SPRAY(S) INTRANASALLY 2 TIMES A DAY, PRN; Duration: 30 DAY(S) *Please review for potential replacement for e-prescription and drug interaction check* Not-Taking Sudafed 30 MG 1 tab(s) orally every 6 hours, prn Not-Taking Benadryl Allergy 25 MG 1 cap(s) orally PRN Not-Taki ng ZANTAC 150 150 MG 1 TAB(S) ORALLY ON DAYS OF IMMUNOTHERAPY.; Duration: 90 DAYS *Please review for potential replacement for e-prescription and drug interaction check* Not-Taking Singulair 10 MG 1 tab(s) orally on days of immunotherapy; Duration: 90 days Not-Taking Xyzal Allergy 24HR 5 MG 1 tablet PO daily; Duration: 30 Not-Taking PROAIR HFA 90 MCG/INH 2 PUFF(S) INHALED 4 TIMES A DAY, PRN *Please review for potential replacement for e-prescription and drug interaction check* Not-Taking ZYRTEC 10 mg 1 tab(s) orally on days of shots Active Xyzal Allergy 24HR 5 MG 1 tablet PO Qday, PRN Not-Taking NASAL WASHES N/A as directed intranasally as needed; Duration: 30 Active Pataday 0.2 % 1 gtt in each affected eye once a day, PRN; Duration: 30 day(s) Not-Taking Nasacort Allergy 24HR 55 MCG/ACT 2 spray(s) intranasally once a day; Duration: 30 day(s) Not-Taking Airsupra 90 MCG-80 MCG/INH 2 INH INHALED 4 TIMES A DAY *Please review and pick correct strength-formula tion from [employer] options. If intended option is not shown, discontinue and re-order from Quick Search* Active ZyrTEC Allergy 10 MG 1 tab(s) orally on days of shots Active NASACORT ALLERGY 24HR 55 mcg/inh 2 spray(s) intranasally once a day; Duration: 30 day(s) Not-Taking AIRSUPRA 90 mcg-80 mcg/inh 2 INH inhaled 4 times a day Active NEXPLANON 68 mg 1 ea subcutaneously once Not-Taking EPINEPHRINE AUTO-INJECTOR 0.3 mg as directed intramuscularly once; Duration: 1 days Active AUVI-Q 0.3 mg as directed intramuscularly once; Duration: 30 days Not-Taking valACYclovir HCl 500 MG TAKE 1 TABLET BY MOUTH DAILY Oral; Duration: 30 Days Active Famotidine 20 MG 1 tablet Orally 60 minutes prior to SCIT; Duration: 30 days 03/03/2025 Active Nexplanon 68 MG 1 ea subcutaneously once Active Auvi-Q 0.3 MG/0.3ML as directed intramuscularly once; Duration: 30 days Active SIT (TRADITIONAL) VARIABLE PER SCHEDULE SC PER SCHEDULE; Duration: 1 DAYS *Please review for potential replacement for e-prescription and drug interaction check* Active SINGULAIR 10 mg 1 tab(s) orally on days of immunotherapy; Duration: 90 days Not-Taking XYZAL 5 mg 1 tablet PO daily; Duration: 30 Not-Taking XYZAL 5 mg 1 tablet PO Qday, PRN Not-Taking SIT (Traditional) variable - see record per schedule subcutaneous per schedule; Duration: 999 days 03/03/2025 Active PATADAY 0.2% 1 gtt in each affected eye once a day, PRN; Duration: 30 day(s) Not-Taking SIT (TRADITIONAL) VARIABLE PER SCHEDULE SC PER SCHEDULE; Duration: TO BE DETERMINED *Please review for potential replacement for e-prescription and drug interaction check* Not-Taking ALBUTEROL (EQV-PROVENTIL HFA) 90 MCG/INH 2 PUFF(S) INHALED EVERY 6 HOURS *Please review for potential replacement for e-prescription and drug interaction check* Not-Taking SIT (CLUSTER) variable per schedule per schedule; Duration: 1 days Active SUDAFED 30 mg 1 tab(s) orally every 6 hours, prn Not-Taking BENADRYL 25 mg 1 cap(s) orally PRN Not-Taking Immunizations Vaccine Route Administration Date Status Comme nts NOC PedvaxHIB Unknown 12/12/1985 Administered Portal In formation NOC Tdap Unknown 2006 Administered Portal Infor mation NOC Flucelvax Quadrivalent Unknown 02/14/2018 Refused NOC Flucelevax Quadrivalent Unknown 03/25/2020 Refused Social History Tobacco Use: Social History Observation Description Date Details (start date - stop date) Former Smoker NA - NA Sex Assigned At : Social History Observation Description Sex Assigned At Female Smoking Smart Form: Question Answer Notes Are you a: never smoker Tobacco Control (Standard) Question Answer Notes Tobacco use: Former smoker AUDIT-C (Standard) Question Answer Notes Did you have a drink containing alcohol in the p ast year? No Points 0 Interpretation Negative Problems Problem Type SNOMED Code ICD Code Onset Dates Problem Status W/U Status Risk Notes Problem Shortness of breath (844859650) Shortness of breath (R06.02) Active confirmed Problem Chronic allergic conjunctivitis (52399769) Other chronic allergic conjunctivitis (H10.45) Active confirmed Problem Allergic rhinitis caused by pollen (disorder) (37019614) Allergic rhinitis due to pollen (J30.1) Active confirmed Problem Allergic rhinitis (00847151) Other allergic rhinitis (J30.89) Active confirmed Problem Cough (49198581) Cough (R05) Active confirmed Problem Allergic rhinitis caused by animal hair and dander (593724681570236) Allergic rhinitis due to animal (cat) (dog) hair and dander (J30.81) Active confirmed Problem Disorder of vocal cord (88443507) 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 confirmed Vital Signs Oximetry 100 % 03/03/2025 Blood pressure diastolic 88 mm Hg 03/03/2025 Height 64.75 in 03/03/2025 Blood pressure systolic 146 mm Hg 03/03/2025 Weight 157.8 lbs 03/03/2025 BMI 26.46 kg/m2 03/03/2025 Encounters Encounter Location Date Provider Diagnosis [address] [phone] 02/04/2025 Wilner Wade Allergic rhinitis du e to pollen J30.1 ; Other allergic rhinitis J30.89 ; Allergic rhinitis due to animal (cat) (dog) hair and dander J30.81 and Other chronic allergic conjunctivitis H10.45 [facility] [address] [place] [phone] 01/06/2025 Wilner Wade Allergic rhinitis du e to pollen J30.1 ; Other allergic rhinitis J30.89 ; Allergic rhinitis due to animal (cat) (dog) hair and dander J30.81 and Other chronic allergic conjunctivitis H10.45 [facility] [address] [place] [phone] 12/10/2024 Wilner Wade Allergic rhinitis du e to pollen J30.1 ; Other allergic rhinitis J30.89 ; Allergic rhinitis due to animal (cat) (dog) hair and dander J30.81 and Other chronic allergic conjunctivitis H10.[address] [address] 11/10/2024 Wilner Wade Allergic rhinitis du e to pollen J30.1 ; Other allergic rhinitis J30.89 ; Allergic rhinitis due to animal (cat) (dog) hair and dander J30.81 and Other chronic allergic conjunctivitis H10.45 [facility] [address] [place] [phone] 10/13/2024 Wilner Wade Allergic rhinitis du e to pollen J30.1 ; Other allergic rhinitis J30.89 ; Allergic rhinitis due to animal (cat) (dog) hair and dander J30.81 and Other chronic allergic conjunctivitis H10.45 [facility] [address] [place] [phone] 09/11/2024 Wilner Wade Allergic rhinitis du e to pollen J30.1 ; Other allergic rhinitis J30.89 ; Allergic rhinitis due to animal (cat) (dog) hair and dander J30.81 and Other chronic allergic conjunctivitis H10.45 [facility] [address] [place], [place] [address] [place] [phone] 08/13/2024 Wilner Wade Allergic rhinitis du e to pollen J30.1 ; Other allergic rhinitis J30.89 ; Allergic rhinitis due to animal (cat) (dog) hair and dander J30.81 and Other chronic allergic conjunctivitis H10.45 [facility] [address] [place], [place] [address] [address] [place] [phone] 07/16/2024 Wilner Wade Allergic rhinitis du e to pollen J30.1 ; Other allergic rhinitis J30.89 ; Allergic rhinitis due to animal (cat) (dog) hair and dander J30.81 and Other chronic allergic conjunctivitis H10.45 [facility] [address] [place], [place] [address] [address] [phone] 06/12/2024 Wilner Wade Allergic rhinitis du e to pollen J30.1 ; Other allergic rhinitis J30.89 ; Allergic rhinitis due to animal (cat) (dog) hair and dander J30.81 and Other chronic allergic conjunctivitis H10.45 [facility] [address] [place], [place] [address] [address] [phone] 05/14/2024 Wilner Wade Allergic rhinitis du e to pollen J30.1 ; Other allergic rhinitis J30.89 ; Allergic rhinitis due to animal (cat) (dog) hair and dander J30.81 and Other chronic allergic conjunctivitis H10.45 [facility] [address] [place] [address] [address] [place] [phone] 05/05/2024 Wilner Wade Allergic rhinitis du e to pollen J30.1 ; Other allergic rhinitis J30.89 ; Allergic rhinitis due to animal (cat) (dog) hair and dander J30.81 and Other chronic allergic conjunctivitis H10.45 [facility] [address] [place] [address] [address] [place] [phone] 04/29/2024 Wilner Wade Allergic rhinitis du e to pollen J30.1 ; Other allergic rhinitis J30.89 ; Allergic rhinitis due to animal (cat) (dog) hair and dander J30.81 and Other chronic allergic conjunctivitis H10.[address] [phone] 04/01/2024 Wilner Wade Allergic rhinitis du e to pollen J30.1 ; Other allergic rhinitis J30.89 ; Allergic rhinitis due to animal (cat) (dog) hair and dander J30.81 and Other chronic allergic conjunctivitis H10.[address] [address] 03/19/2024 Wilner Wade Allergic rhinitis du e to pollen J30.1 ; Other allergic rhinitis J30.89 ; Allergic rhinitis due to animal (cat) (dog) hair and dander J30.81 and Other chronic allergic conjunctivitis H10.[address] [address] 03/03/2025 Klarissa Spicer Allergic rhinitis du e to pollen J30.1 ; Allergic rhinitis due to animal (cat) (dog) hair and dander J30.81 ; Other allergic rhinitis J30.89 ; Other chronic allergic conjunctivitis H10.45 ; Shortness of breath R06.02 ; Wheezing R06.2 and Elevated blood-pressure reading, without diagnosis of hypertension R03.[address] [address] 01/20/2025 Michelle Art [address] [address] 09/11/2024 Michelle Art Assessments Encounter Date Diagnosis (ICD Code) Assessment Notes Treatment Notes Treatment Clinical Notes Section Notes 03/19/2024 Allergic rhinitis due to pollen (ICD-10 - J30.1) 03/19/2024 Other allergic rhinitis (ICD-10 - J30.89) 04/01/2024 Allergic rhinitis due to pollen (ICD-10 - J30.1) 04/01/2024 Other allergic rhinitis (ICD-10 - J30.89) 04/29/2024 Allergic rhinitis due to pollen (ICD-10 - J30.1) 04/29/2024 Other allergic rhinitis (ICD-10 - J30.89) 05/05/2024 Allergic rhinitis due to pollen (ICD-10 - J30.1) 05/05/2024 Other allergic rhinitis (ICD-10 - J30.89) 05/14/2024 Allergic rhinitis due to pollen (ICD-10 - J30.1) 05/14/2024 Other allergic rhinitis (ICD-10 - J30.89) 06/12/2024 Allergic rhinitis due to pollen (ICD-10 - J30.1) 06/12/2024 Other allergic rhinitis (ICD-10 - J30.89) 07/16/2024 Allergic rhinitis due to pollen (ICD-10 - J30.1) 07/16/2024 Other allergic rhinitis (ICD-10 - J30.89) 08/13/2024 Allergic rhinitis due to pollen (ICD-10 - J30.1) 08/13/2024 Other allergic rhinitis (ICD-10 - J30.89) 09/11/2024 Allergic rhinitis due to pollen (ICD-10 - J30.1) 09/11/2024 Other allergic rhinitis (ICD-10 - J30.89) 10/13/2024 Allergic rhinitis due to pollen (ICD-10 - J30.1) 10/13/2024 Other allergic rhinitis (ICD-10 - J30.89) 11/10/2024 Allergic rhinitis due to pollen (ICD-10 - J30.1) 11/10/2024 Other allergic rhinitis (ICD-10 - J30.89) 12/10/2024 Allergic rhinitis due to pollen (ICD-10 - J30.1) 12/10/2024 Other allergic rhinitis (ICD-10 - J30.89) 01/06/2025 Allergic rhinitis due to pollen (ICD-10 - J30.1) 01/06/2025 Other allergic rhinitis (ICD-10 - J30.89) 02/04/2025 Allergic rhinitis due to pollen (ICD-10 - J30.1) 02/04/2025 Other allergic rhinitis (ICD-10 - J30.89) 03/03/2025 Allergic rhinitis due to pollen (ICD-10 - J30.1) Hilda clearly suffers from atopic disease based upon our prior skin testing. Accordingly, we have encouraged her medication regimen, discussed nasal washes and allergy-specific avoidance measures. - Hilda was previously on SCIT from [id number]. She stopped 12 months ago due to drastic improvement in symptoms. She later returned with increased symptoms. - Hilda restarted SCIT, reached MM again 03/2024. She reports significant benefit since restarting. - Hilda does report large locals after SCIT dosing. We will add Pepcid to her premedication regimen. Consider reducing dosing. SCIT dose tolerated today without issue. AIE is on hand. - Continue medication regimen as above. - Increase SCIT frequency in peak seasons PRN. - Follow-up as scheduled for SCIT and in 6 months for further evaluation and management 03/03/2025 Allergic rhinitis due to animal (cat) (dog) hair and dander (ICD-10 - J30.81) Follow allergen avoidance, meds and continue SCIT as an adjunctive treatment to current regimen 03/03/2025 Other allergic rhinitis (ICD-10 - J30.89) Follow allergen avoidance, meds and continue SCIT as an adjunctive treatment to current regimen 02/04/2025 Allergic rhinitis due to animal (cat) (dog) hair and dander (ICD-10 - J30.81) 01/06/2025 Allergic rhinitis due to animal (cat) (dog) hair and dander (ICD-10 - J30.81) 12/10/2024 Allergic rhinitis due to animal (cat) (dog) hair and dander (ICD-10 - J30.81) 11/10/2024 Allergic rhinitis due to animal (cat) (dog) hair and dander (ICD-10 - J30.81) 10/13/2024 Allergic rhinitis due to animal (cat) (dog) hair and dander (ICD-10 - J30.81) 09/11/2024 Allergic rhinitis due to animal (cat) (dog) hair and dander (ICD-10 - J30.81) 08/13/2024 Allergic rhinitis due to animal (cat) (dog) hair and dander (ICD-10 - J30.81) 07/16/2024 Allergic rhinitis due to animal (cat) (dog) hair and dander (ICD-10 - J30.81) 06/12/2024 Allergic rhinitis due to animal (cat) (dog) hair and dander (ICD-10 - J30.81) 05/14/2024 Allergic rhinitis due to animal (cat) (dog) hair and dander (ICD-10 - J30.81) 05/05/2024 Allergic rhinitis due to animal (cat) (dog) hair and dander (ICD-10 - J30.81) 04/29/2024 Allergic rhinitis due to animal (cat) (dog) hair and dander (ICD-10 - J30.81) 04/01/2024 Allergic rhinitis due to animal (cat) (dog) hair and dander (ICD-10 - J30.81) 03/19/2024 Allergic rhinitis due to animal (cat) (dog) hair and dander (ICD-10 - J30.81) 03/19/2024 Other chronic allergic conjunctivitis (ICD-10 - H10.45) 04/01/2024 Other chronic allergic conjunctivitis (ICD-10 - H10.45) 04/29/2024 Other chronic allergic conjunctivitis (ICD-10 - H10.45) 05/05/2024 Other chronic allergic conjunctivitis (ICD-10 - H10.45) 05/14/2024 Other chronic allergic conjunctivitis (ICD-10 - H10.45) 06/12/2024 Other chronic allergic conjunctivitis (ICD-10 - H10.45) 07/16/2024 Other chronic allergic conjunctivitis (ICD-10 - H10.45) 08/13/2024 Other chronic allergic conjunctivitis (ICD-10 - H10.45) 09/11/2024 Other chronic allergic conjunctivitis (ICD-10 - H10.45) 10/13/2024 Other chronic allergic conjunctivitis (ICD-10 - H10.45) 11/10/2024 Other chronic allergic conjunctivitis (ICD-10 - H10.45) 12/10/2024 Other chronic allergic conjunctivitis (ICD-10 - H10.45) 01/06/2025 Other chronic allergic conjunctivitis (ICD-10 - H10.45) 02/04/2025 Other chronic allergic conjunctivitis (ICD-10 - H10.45) 03/03/2025 Other chronic allergic conjunctivitis (ICD-10 - H10.45) Given ocular signs and symptoms, I strongly encouraged allergy avoidance measures, medications including intraocular antihistamine/mas t cell stabilizer, PRN and continue SCIT as an adjunctive measure 03/03/2025 Shortness of breath (ICD-10 - R06.02) Hilda endorses occasional chest tightness, typically in the morning. She has noticed an increase in her RODRIGO use lately, using RODRIGO 1-2 times per week. Historically she would experience chest tightness and wheezing when near cats, which improved with SCIT. - Spirometry obtained last visit that showed normal FEV1, FVC and FEV1%. - Last visit discussed trial of AIRSUPRA vs trial of ICS or ICS/LABA to assess for perceived benefit. - Will continue trial of AIRSUPRA as-needed at this time. Consider step-up to ICS or ICS/LABA if Hilda's symptoms do not improve. She is aware to rinse her mouth after use. - Treat atopic disease aggressively, see plan above. - Hilda is to follow-up as above 03/03/2025 Wheezing (ICD-10 - R06.2) See plan above 03/03/2025 Elevated blood-pressure reading, without diagnosis of hypertension (ICD-10 - R03.0) BP elevated today without symptoms of urgency or emergency. Continue serial checks and follow-up with PCP 03/03/2025 Other Plan Of Treatment Next Appt Details Provider Name:Wilner Wade , 03/31/2025 04:00:00 PM, [address] [facility], [address], [address], Insurance Providers Payer Name Payer Address Payer Phone Subscriber Number Group Number Insured Name Patient Relationship to Insured Coverage Start Date Coverage End Date [id number] [place] [address] [id number] Hilda Sofia Self - patient is the insured 3 Medical (General) History Medical History History ICD Code Other chronic sinusitis Wheezing Allergic rhinitis due to pollen Allergic rhinitis due to animal (cat) (d og) hair and dander Other allergic rhinitis Other chronic allergic conjunctivitis Cough Other diseases of vocal cords Surgical History Surgery Date(Month/Year) Sinus Surgery 04/27/1993 Breast augmentation 06/2021 Hospitalization History Reason Date(Month/Year) #2 08/18/2014 #1 07/08/2010
--- OUTSIDE RECORDS SUMMARY | 2025-03-12 07:37 | XMS_ITS | Clinical Summary ---
Author Organization [facility] Address [address] [place] [address] Care Team Providers Care Blasting Cap Assembler Name Role Phone Wilner Lewis MD Primary Care Provider [phone] Medications NEXPLANON 68 MG SC implant 04/01/2020 [...] 10:59 AM CDT Height 162.6 cm (5' 4) 08/16/2020 10:59 AM CDT Body Mass Index 27.29 08/16/2020 10:59 AM CDT Plan of Treatment Health Maintenance Due Date Last Done Comments Cervical Cancer Screening Pa p Smear (Age 30 to 64) Every 3 Years 1982 Annual Physical 1985 Hepatitis C 2000 DTaP, Tdap and Td Vaccines ( 1 - Tdap) 2001 Hepatitis B Vaccines (1 of 3 - 19+ 3-dose series) 2001 HPV Vaccines (1 - 3-dose SCD M series) 2009 Cervical Cancer Screening Pa p with HPV Testing (Age 30 to 64) Every 5 Years 2012 Cervical Cancer Screening with HPV 2012 Mammogram Screening 2022 COVID-19 Vaccine (2023-2 5 season) 2025 Influenza Adult (#1) 2025 Meningococcal B Vaccine Aged Out No l onger eligible based on patient's age to complete this topic Meningococcal Vaccine Aged Out No bebeto bob eligible based on patient's age to complete this topic Pneumococcal Vaccine: Pediat rics (0 to 5 Years) and At-Risk Patients (6 to 49 Years) Aged Out No longer eligible b ased on patient's age to complete this topic RSV Immunizations Under 20 Months Aged Out No longer eligible based on patient's age to complete this topic Insurance [employer] Care Teams Blasting Cap Assembler Relationship Specialty Start Date End Date Wilner Lewis MD [address] [address] PCP - General FAMILY PRACTICE 08/16/20
[2025-03-12 09:13] LABS: Hematocrit 41.6 % (37.0-47.0); Hemoglobin 14.5 g/dL (12.0-15.0); Immature Granulocyte Percent A 0.2 % (0-0.5); Lymphocytes Absolute Auto 1.33 K/mm3 (0.9-3.2); Mean Corpuscular HGB Conc 34.9 g/dl (32-36); Mean Corpuscular Hemoglobin 31.2 pg (26-34); Mean Corpuscular Volume 89.5 fl (80-100); Nucleated Red Blood Cells Absolute Auto 0.000 K/mm3 (0.0-0.012); Nucleated Red Blood Cells Perc 0.0 % (0.0-0.2); Platelet Count Result 274 k/mm3 (150-375); Red Blood Count 4.65 M/mm3 (4.2-5.4); White Blood Count 4.0 K/mm3 (4.5-10.0)
[2025-03-12 09:37] LABS: Alanine Aminotransferase 16 U/L (6-35); Albumin Level 4.4 g/dL (3.5-5.1); Alkaline Phosphatase 61 U/L (38-126); Anion Gap 3 mmol/L (4-12); Aspartate Amino Transferase 30 U/L (14-36); Bilirubin,Total 0.5 mg/dL (0.2-1.3); Blood Urea Nitrogen 22 mg/dL (7-17); Calcium 9.2 mg/dL (8.4-10.2); Carbon Dioxide 28 mmol/L (22-30); Chloride 104 mmol/L (98-107); Cholesterol 172 mg/dL (0-200); Estimated Glomerular Filt Rate > 60; Glucose 75 mg/dL (65-110); HDL Direct 80 mg/dL; Potassium 4.5 mmol/L (3.4-5.0); Sodium 135 mmol/L (137-145); Total Protein 7.3 g/dL (6.3-8.2); Triglycerides 41 mg/dL (<150)
== END 2025-03-12 07:34 | disposition home or self-care (01) ==
LOC: ANHLAB 07:35
PROVIDERS: PCP Internal Medicine; Visit Provider Nurse Practitioner
DX: E55.9 Vitamin D deficiency, unspecified (principal); Z13.220 Encounter for screening for lipoid disorders; Z13.29 Encounter for screening for other suspected endocrine disorder
CPT/HCPCS: 36415; 80053; 80061; 82306; 85025

== ENCOUNTER 2025-03-26 12:07 | Emergency (ER) | payer OTHER, SELFPAY ==
--- OUTSIDE RECORDS SUMMARY | 2024-07-10 11:10 | XMS_ITS ---
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 Name Role Phone Galilea Oliveros Primary Care Provider Michelle Vela Unavailable [phone] Wilner Wade Unavailable [phone] REASON FOR VISIT SCIT - Traditional Schedule Allergy Immunotherapy (Week ) Social History Sex Assigned At : Social History Observation Description Sex Assigned At Female Encounters Encounter Location Date Provider Diagnosis [facility] [address] [place] [address] 07/10/2024 Wilner Wade Allergic rhinitis du e to pollen J30.1 ; Other allergic rhinitis J30.89 ; Allergic rhinitis due to animal (cat) (dog) hair and dander J30.81 and Other chronic allergic conjunctivitis H10.45 Assessments Encounter Date Diagnosis (ICD Code) Assessment Notes Treatment Notes Treatment Clinical Notes Section Notes 07/10/2024 Allergic rhinitis due to pollen (ICD-10 - J30.1) 07/10/2024 Other allergic rhinitis (ICD-10 - J30.89) 07/10/2024 Allergic rhinitis due to animal (cat) (dog) hair and dander (ICD-10 - J30.81) 07/10/2024 Other chronic allergic conjunctivitis (ICD-10 - H10.45) Plan Of Treatment Next Appt Details Follow Up: As scheduled, Jana son: Provider Name:Wilner Wade , 03/31/2025 04:00:00 PM, [address], [place], [address], Progress Notes * Santiago SOFIAOB:1980 (44 yo F)Acc No.[id number]:07/10/2024 SCIT-Aeroallergen Patient: Hilda HANLEY Provider: Callie Wade MD :1980 A ge:43 Y S ex:Female Date:07/10/2024 Address:[address] [place], [place] [id number] Pcp:Galilea Oliveros Subjective: * Chief Complaints: * 1 . SCIT - Traditional Schedule Allergy Immunotherapy (Week ). * HPI: * Introduction: The patient is here for scheduled immunotherapy. Please see the attached specialty form regarding the specifics of the administration of these vaccines. As per our protocol, they must undergo a screening health questionnaire (medication changes, reaction(s) to last immunotherapy dose(s), current health status, ACT (if appropriate), self-injectable epinephrine on patient(?) and peak flow (if appropriate)). Also, the patient must wait in our office for 30 minutes after receiving the vaccine(s). Furthermore, every patient must have an epinephrine pen (self-injectable) with them at the time of administration--and carry if for the following 1.5 hours after they leave our office. The patient must also have taken their antihistamine the day of the injection, preferably 2 hours prior. The consent form for SCIT (subcutaneous immunotherapy) is on file. * Medical History: Objective: * Vitals: Assessment: * Assessment: 1. A llergic rhinitis due to pollen - J30.1 (Primary) 2 . O ther allergic rhinitis - J30.89 3 . A llergic rhinitis due to animal (cat) (dog) hair and dander - J30.81 4 . O ther chronic allergic conjunctivitis - H10.45 Plan: * Treatment: * Preventive Medicine: Counseling: E xercise A void heavy lifting on days of allergy immunotherapy. M edication instruction: I njectable epinephrine education and instruction w/ discussion of signs and symptoms of anaphylaxis and reasons to seek urgent or emergent care, Watch for side effects of prescribed medications. E ducation: A ble to return demonstration of self-injectable epinephrine. * Follow Up: A s scheduled * Billing Information: * Visit Code: * Procedure Codes: 73004 IMMUNOTHERAPY INJECTIONS. * Electronic signature of Chana Wade MD, FAAAAI on 03/26/2025 at 01:00 PM CDT Sign off status: Pending * Provider: Callie Wade MD Date: 0 07/10/2024 Generated for Printi ng/Kelvin/eTransmitting on: 1 01:00 PM CDT History and Physical Notes * HPI (History of Present Illness) Category Sub-Category Detail Notes Category Not es *Introduction The patient is here for scheduled immunotherapy. Please see the attached specialty form regarding the specifics of the administration of these vaccines. As per our protocol, they must undergo a screening health questionnaire (medication changes, reaction(s) to last immunotherapy dose(s), current health status, ACT (if appropriate), self-injectable epinephrine on patient(?) and peak flow (if appropriate)). Also, the patient must wait in our office for 30 minutes after receiving the vaccine(s). Furthermore, every patient must have an epinephrine pen (self-injectable) with them at the time of administration--and carry if for the following 1.5 hours after they leave our office. The patient must also have taken their antihistamine the day of the injection, preferably 2 hours prior. The consent form for SCIT (subcutaneous immunotherapy) is on file.
[2025-03-26 12:15] VITALS: BP 133/84; PULSE 72; RESP 18; TEMP 36.2; O2SAT 100
--- NOTE | 2025-03-26 12:17 | ED.URI ---
HPI - URI/Sore Throat General Chief Complaint: Upper Respiratory Infection Stated Complaint: Sore throat Time Seen by Provider: 03/26/25 12:21 Source: patient Mode of arrival: ambulatory Limitations: no limitations History of Present Illness HPI Narrative: 44 yo F presents with c/o headache, sore throat, fatigue starting this morning. Afebrile. 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 Concerned for strep throat. All systems reviewed and negative except as noted above. 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 Seasonal allergies Asthma Vaginal delivery Surgical History Surgical History H/O breast augmentation History of bladder surgery History of dilation and curettage Family History Family History Grandparent Diabetes mellitus, Onset Age: 75 Social History Social History Smoking status: Former smoker Second hand tobacco smoke exposure: No Smoking end date: 05/28/08 Alcohol intake: current Drinks per week: 2 Substance use: never Lack of Transportation: No Lack of Food: Never True Current Housing: I Have Housing Concerned About Future Housing: No Difficulty Paying Gas/Electric Bills: No Difficulty Paying for Meds: No Currently Unemployed: No Education: Master's Degree or Higher Difficulty w/ Childcare or Family Care: No Living arrangements: with family Occupation/Education: occupation Gender identity (if verbalized by the patient): Female Sexual Orientation (if Verbalized by the Patient): Straight or Heterosexual Spiritual care concerns: No Comments At time of signature, agree with nursing past medical, surgical, social and family history. There is no relevant family history pertinent to the presenting complaint. Exam Narrative: GENERAL: This is a well-nourished, well-developed patient, ill-appearing but no acute distress HEAD: normocephalic, atraumatic. EYES: PERRL. Sclera clear/white. Vision is grossly intact. EARS: External ears normal, auditory canals clear and without drainage, TMs normal without perforation. Hearing grossly intact. NOSE: External nose normal with no obvious nasal discharge, nares without redness, no rhinorrhea. THROAT: Mucous membranes moist, Erythematous with swelling. No exudates. NECK: Neck supple, non-tender , bilateral anterior cervical lymphadenopathy. No masses or thyromegaly. CARDIOVASCULAR: Regular rate and rhythm without murmurs, gallops, or rubs. RESPIRATORY: Clear to auscultation. Breath sounds equal bilaterally. No wheezes, rales, or rhonchi. SKIN: warm, Dry, intact with no suspicious lesions or rash, good texture and turgor. NEURO: awake, alert, and oriented to person, place and time. There were no obvious focal neurologic abnormalities. EXTREMITIES: No joint tenderness, effusion, or edema noted. Course Course Level of Care: Express Care Visit Vital Signs Vital signs: Vital Signs Temperature 36.2 C L 03/26/25 12:15 Pulse Rate 72 03/26/25 12:15 Respiratory Rate 18 03/26/25 12:15 Blood Pressure 133/84 03/26/25 12:15 Pulse Oximetry 100 03/26/25 12:15 Oxygen Delivery Room Air 03/26/25 12:15 Temperature 36.2 C L 03/26/25 12:15 Pulse Rate 72 03/26/25 12:15 Respiratory Rate 18 03/26/25 12:15 Blood Pressure 133/84 03/26/25 12:15 Pulse Oximetry 100 03/26/25 12:15 Oxygen Delivery Room Air 03/26/25 12:15 reviewed MDM - URI/Sore Throat MDM Narrative Medical decision making narrative: negative strep throat. Will treat with antibiotic for strep throat due to patient's symptoms and exam findings. Patient agrees with plan of care. Differential Diagnosis Differential diagnosis: Likely upper respiratory infection, sinusitis, viral infection, influenza and pharyngitis Discharge Plan Discharge Clinical Impression: Acute pharyngitis Patient Disposition: Home Condition: Stable Instructions: Antibiotic Form, Pharyngitis (ED) Additional Instructions: take antibiotic as prescribed until gone. Change toothbrush after taking antibiotic for 24 hours. Take ibuprofen or Tylenol every 6-8 hours as needed for pain and fever. Drink plenty of water and rest. See your doctor if symptoms are not improving. Patient Language: Venezuelan Prescriptions: New amoxicillin 500 mg capsule 500 mg PO Q12H 10 Days Qty: 20 0RF No Action various vitamins 1 tablet BYMOUTH DAILY Nexplanon 68 mg implant 1 implant subdermal ONCE Rx Instructions: inserted 04/15/2020 albuterol sulfate 90 mcg/actuation HFA aerosol inhaler 1 puff inhalation Q4H PRN (Reason: bronchospasm) Qty: 8.5 1RF valacyclovir [Valtrex] 500 mg tablet 500 mg PO DAILY Qty: 90 3RF Follow-up/Referrals: Galilea Oliveros APRN [Primary Care Provider, Internal Medicine] Time of Disposition: 12:34
[2025-03-26 12:32] LABS: EDSTREPNEGPOS1 Negative (Negative)
--- OUTSIDE RECORDS SUMMARY | 2025-03-26 13:00 | XMS_ITS | Clinical Summary ---
Author Organization [facility] Address [address] [place] [address] Care Team Providers Care Bankruptcy Judge Name Role Phone Wilner Lewis MD Primary Care Provider [phone]- [phone] Medications NEXPLANON 68 MG SC implant 04/01/2020 [...] HPV 2012 Mammogram Screening 2022 COVID-19 Vaccine (2024-2 6 season) 2025 Influenza Adult (#1) 2025 Hepatitis A Vaccines Aged Out No long er eligible based on patient's age to complete [...] of Phone Billing Address Personal/Family Self 1980 [phone] (Work) [address] [place] [address] [employer] Care Teams Bankruptcy Judge Relationship Specialty Start Date End Date Wilner Lewis MD [address] [address] PCP - General FAMILY PRACTICE 08/16/20
--- OUTSIDE RECORDS SUMMARY | 2025-03-26 13:00 | XMS_ITS | Patient Health Record ---
Author Organization [facility] [employer] [facility] [employer] ([address]) Address [address] [place] [address] Care Team Providers Care Blue Line Trimmer Name Role Phone Galilea Oliveros Primary Care Provider UnavailMichelle Huerta Unavailable [phone] Wilner Wade Unavailable [phone] Klarissa Spicer Unavailable [phone] Allergies No Known Allergies Reason For Referral [...] review and pick correct strength-formula tion from [employer] options. If intended option is not shown, [...] Status Risk Notes Problem Shortness of breath (437940947) Shortness of breath (R06.02) Active confirmed Problem Chronic allergic conjunctivitis (61602575) Other chronic allergic conjunctivitis (H10.45) Active confirmed Problem Allergic rhinitis caused by pollen (disorder) (96349364) Allergic rhinitis due to pollen (J30.1) Active confirmed Problem Allergic rhinitis (35427753) Other allergic rhinitis (J30.89) Active confirmed Problem Cough (66482482) Cough (R05) Active confirmed Problem Allergic rhinitis caused by animal hair and dander (488931725220468) Allergic rhinitis due to animal (cat) (dog) hair and dander (J30.81) Active confirmed Problem 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 Vital Signs Oximetry 100 % 03/03/2025 Blood pressure diastolic 88 mm Hg 03/03/2025 Height 64.75 in 03/03/2025 Blood pressure systolic 146 mm Hg 03/03/2025 Weight 157.8 lbs 03/03/2025 BMI 26.46 kg/m2 03/03/2025 Encounters Encounter Location Date Provider Diagnosis [address] [address] 02/04/2025 Wilner Wade Allergic rhinitis du e to pollen J30.1 ; Other allergic rhinitis J30.89 ; Allergic rhinitis due to animal (cat) (dog) hair and dander J30.81 and Other chronic allergic conjunctivitis H10.45 [facility] [address] [place] [phone] 01/06/2025 Wilner Wade Allergic rhinitis du e to pollen J30.1 ; Other allergic rhinitis J30.89 ; Allergic rhinitis due to animal (cat) (dog) hair and dander J30.81 and Other chronic allergic conjunctivitis H10.45 [facility] [address] [place] [phone] 12/10/2024 Wilner Wade Allergic rhinitis du e to pollen J30.1 ; Other allergic rhinitis J30.89 ; Allergic rhinitis due to animal (cat) (dog) hair and dander J30.81 and Other chronic allergic conjunctivitis H10.[address] [address] 11/10/2024 Wilner Wade Allergic rhinitis du e to pollen J30.1 ; Other allergic rhinitis J30.89 ; Allergic rhinitis due to animal (cat) (dog) hair and dander J30.81 and Other chronic allergic conjunctivitis H10.45 [facility] [address] [place] [phone] 10/13/2024 Wilner Wade Allergic rhinitis du e to pollen J30.1 ; Other allergic rhinitis J30.89 ; Allergic rhinitis due to animal (cat) (dog) hair and dander J30.81 and Other chronic allergic conjunctivitis H10.45 [facility] [address] [place] [phone] 09/11/2024 Wilner Wade Allergic rhinitis du e to pollen J30.1 ; Other allergic rhinitis J30.89 ; Allergic rhinitis due to animal (cat) (dog) hair and dander J30.81 and Other chronic allergic conjunctivitis H10.45 [facility] [address] [place], [place] [address] [address] [place] [phone] 08/13/2024 Wilner Wade Allergic rhinitis du e to pollen J30.1 ; Other allergic rhinitis J30.89 ; Allergic rhinitis due to animal (cat) (dog) hair and dander J30.81 and Other chronic allergic conjunctivitis H10.45 [facility] [address] [place], [place] [address] [address] [place] [phone] 07/16/2024 Wilner Wade Allergic rhinitis du e to pollen J30.1 ; Other allergic rhinitis J30.89 ; Allergic rhinitis due to animal (cat) (dog) hair and dander J30.81 and Other chronic allergic conjunctivitis H10.45 [facility] [address] [place], [place] [address] [address] [address] 06/12/2024 Wilner Wade Allergic rhinitis du e to pollen J30.1 ; Other allergic rhinitis J30.89 ; Allergic rhinitis due to animal (cat) (dog) hair and dander J30.81 and Other chronic allergic conjunctivitis H10.45 [facility] [address] [place], [place] [address] [address] [address] 05/14/2024 Wilner Wade Allergic rhinitis du e to pollen J30.1 ; Other allergic rhinitis J30.89 ; Allergic rhinitis due to animal (cat) (dog) hair and dander J30.81 and Other chronic allergic conjunctivitis H10.45 [facility] [address] [place], [place] [address] [address] [place] [phone] 05/05/2024 Wilner Wade Allergic rhinitis du e to pollen J30.1 ; Other allergic rhinitis J30.89 ; Allergic rhinitis due to animal (cat) (dog) hair and dander J30.81 and Other chronic allergic conjunctivitis H10.45 [facility] [address] [place], [place] [address] [address] [place] [phone] 04/29/2024 Wilner Wade Allergic rhinitis du e to pollen J30.1 ; Other allergic rhinitis J30.89 ; Allergic rhinitis due to animal (cat) (dog) hair and dander J30.81 and Other chronic allergic conjunctivitis H10.[address] [address] 04/01/2024 Wilner Wade Allergic rhinitis du e to pollen J30.1 ; Other allergic rhinitis J30.89 ; Allergic rhinitis due to animal (cat) (dog) hair and dander J30.81 and Other chronic allergic conjunctivitis H10.[address] [address] 03/03/2025 Klarissa Spicer Allergic rhinitis du e to pollen J30.1 ; Allergic rhinitis due to animal (cat) (dog) hair and dander J30.81 ; Other allergic rhinitis J30.89 ; Other chronic allergic conjunctivitis H10.45 ; Shortness of breath R06.02 ; Wheezing R06.2 and Elevated blood-pressure reading, without diagnosis of hypertension R03.[address] [address] 01/20/[address] Art [address] [address] 09/11/2024 Michelle Art Assessments Encounter Date Diagnosis (ICD Code) Assessment Notes Treatment Notes Treatment Clinical Notes Section Notes 04/01/2024 Allergic rhinitis due to pollen (ICD-10 [...] - Hilda was previously on SCIT from [id number]. She stopped 12 months ago due to [...] hair and dander (ICD-10 - J30.81) 04/01/2024 Other chronic allergic conjunctivitis (ICD-10 - [...] Of Treatment Next Appt Details Provider Name:Wilner TylerAzael Wade , 03/31/2025 04:00:00 PM, [facility], [address], [place], [address], Insurance Providers Payer Name Payer Address Payer Phone Subscriber Number Group Number Insured Name Patient Relationship to Insured Coverage Start Date Coverage End Date [employer] [address] [place] [address] [id number] Hilda Sofia Self - patient is the [...]
== END 2025-03-26 12:36 | disposition home or self-care (01) ==
PROVIDERS: Emergency Provider Nurse Practitioner Family; PCP Nurse Practitioner
DX: J02.9 Acute pharyngitis, unspecified (principal); Z87.891 Personal history of nicotine dependence
CPT/HCPCS: 87081; 87880; 99213; G0463

== ENCOUNTER 2025-04-08 15:42 | Outpatient (CLI) | payer OTHER, SELFPAY ==
--- OUTSIDE RECORDS SUMMARY | 2025-04-07 03:00 | XMS_ITS ---
Author Organization [employer] [facility] [employer] [place] ([address]) Address [address] [place] [address] Care Team Providers Care Adding Machine Servicer Name Role Phone Galilea Oliveros Primary Care Provider UnavailMichelle Huerta Unavailable [phone] Wilner Wade Unavailable [phone] REASON FOR VISIT SCIT - Traditional Schedule Allergy Immunotherapy (Week ) Medications Medication SIG (Take, Route, Frequency, Duration) Notes Start Date End Date Status Nasacort Allergy 24HR 55 MCG/ACT 2 spray(s) intranasally once a day; Duration: 30 day(s) Not-Taking Sudafed 30 MG 1 tab(s) orally every 6 hours, prn Not-Taking Benadryl Allergy 25 MG 1 cap(s) orally PRN Not-Taki ng SIT (CLUSTER) VARIABLE PER SCHEDULE SC PER SCHEDULE; Duration: TO BE DETERMINED *Please review for potential replacement for e-prescription and drug interaction check* Not-Taking OLOPATADINE HYDROCHLORIDE 665 MCG/INH 2 SPRAY(S) INTRANASALLY 2 TIMES A DAY, PRN; Duration: 30 DAY(S) *Please review for potential replacement for e-prescription and drug interaction check* Not-Taking ZANTAC 150 150 MG 1 TAB(S) [...] for e-prescription and drug interaction check* Not-Taking Xyzal Allergy 24HR 5 MG 1 tablet PO Qday, PRN Not-Taking SUDAFED 30 mg 1 tab(s) orally every 6 hours, prn Not-Taking BENADRYL 25 mg 1 cap(s) orally PRN Not-Taking SINGULAIR 10 mg 1 tab(s) orally on days of immunotherapy; Duration: 90 days Not-Taking Pataday 0.2 % 1 gtt in each affected eye once a day, PRN; Duration: 30 day(s) Not-Taking NASACORT ALLERGY 24HR 55 mcg/inh 2 spray(s) intranasally once a day; Duration: 30 day(s) Not-Taking XYZAL 5 mg 1 tablet PO daily; Duration: 30 Not-Taking XYZAL 5 mg 1 tablet PO Qday, PRN Not-Taking PATADAY 0.2% 1 gtt in each affected eye once a day, PRN; Duration: 30 day(s) Not-Taking SIT (TRADITIONAL) VARIABLE PER SCHEDULE SC PER SCHEDULE; Duration: TO BE DETERMINED *Please review for potential replacement for e-prescription and drug interaction check* Not-Taking ALBUTEROL (EQV-PROVENTIL HFA) 90 MCG/INH 2 PUFF(S) INHALED EVERY 6 HOURS *Please review for potential replacement for e-prescription and drug interaction check* Not-Taking valACYclovir HCl 500 MG TAKE 1 TABLET BY MOUTH DAILY Oral; Duration: 30 Days Active Nexplanon 68 MG 1 ea subcutaneously once Active Auvi-Q 0.3 MG/0.3ML as directed intramuscularly once; Duration: 30 days Active NEXPLANON 68 mg 1 ea subcutaneously once Not-Taking AUVI-Q 0.3 mg as directed intramuscularly once; Duration: 30 days Not-Taking SIT (TRADITIONAL) VARIABLE PER SCHEDULE SC PER SCHEDULE; Duration: 1 DAYS *Please review for potential replacement for e-prescription and drug interaction check* Active Airsupra 90 MCG-80 MCG/INH 2 INH INHALED 4 TIMES A DAY *Please review and pick correct strength-formula tion from [employer] options. If intended option is not shown, discontinue and re-order from Quick Search* Active ZyrTEC Allergy 10 MG 1 tab(s) orally on days of shots Active SIT (CLUSTER) variable per schedule per schedule; Duration: 1 days Active Famotidine 20 MG 1 tablet Orally 60 minutes prior to SCIT; Duration: 30 days 03/03/2025 Active AIRSUPRA 90 mcg-80 mcg/inh 2 INH inhaled 4 times a day Active ZYRTEC 10 mg 1 tab(s) orally on days of shots Active NASAL WASHES N/A as directed intranasally as needed; Duration: 30 Active SIT (Traditional) variable - see record per schedule subcutaneous per schedule; Duration: 999 days 03/03/2025 Active EPINEPHRINE AUTO-INJECTOR 0.3 mg as directed intramuscularly once; Duration: 1 days Active Social History Sex Assigned At : Social History Observation Description Sex Assigned At Female Encounters Encounter Location Date Provider Diagnosis [facility] [address] [facility] [address] [place] [address] 04/07/2025 Wilner Mauro Allergic rhinitis du e to pollen J30.1 ; Other allergic rhinitis J30.89 ; Allergic rhinitis due to animal (cat) (dog) hair and dander J30.81 and Other chronic allergic conjunctivitis H10.45 Assessments Encounter Date Diagnosis (ICD Code) Assessment Notes Treatment Notes Treatment Clinical Notes Section Notes 04/07/2025 Allergic rhinitis due to pollen (ICD-10 - J30.1) 04/07/2025 Other allergic rhinitis (ICD-10 - J30.89) 04/07/2025 Allergic rhinitis due to animal (cat) (dog) hair and dander (ICD-10 - J30.81) 04/07/2025 Other chronic allergic conjunctivitis (ICD-10 - H10.45) Plan Of Treatment Next Appt Details Follow Up: As scheduled, Jana son: Provider Name:Wilner Angel Mauro , 04/15/2025 04:00:00 PM, [address], [place], [address], Provider Name:Wilner H. Mauro , 05/13/2025 04:00:00 PM, [address], [place], [address], Progress Notes * Mart SOFIA:1980 (44 yo F)Acc No.[id number]:04/07/2025 SCIT-Aeroallergen Patient: Hilda HANLEY Provider: Callie Wade MD :1980 A ge:44 Y S ex:Female Date:04/07/2025 Address:[address] [place] [address] Pcp:Galilea Oliveros Subjective: * Chief Complaints: * [...] Hospitalization/Major Diagno stic Procedure: * Medications: T akingNASAL WASHES N/A 1 quart of sterilized tap water or distilled water, 1 tsp NaCl, 1 pinch of baking soda as directed intranasally as needed ZYRTEC 10 mg tablet 1 tab(s) orally on days of shots AIRSUPRA 90 mcg-80 mcg/inh aerosol 2 INH inhaled 4 times a day EPINEPHRINE AUTO-INJECTOR 0.3 mg kit as directed intramuscularly once SIT (Traditional) variable - see record variable - see record per schedule subcutaneous per schedule Famotidine 20 MG Tablet 1 tablet Orally 60 minutes prior to SCIT SIT (CLUSTER) variable see record per schedule per schedule ZyrTEC Allergy 10 MG Tablet 1 tab(s) orally on days of shots Airsupra 90 MCG-80 MCG/INH AEROSOL 2 INH INHALED 4 TIMES A DAY , Notes to Pharmacist: *Please review and pick correct strength-formulation from [employer] options. If intended option is not shown, discontinue and re-order from Quick Search*SIT (TRADITIONAL) VARIABLE SEE RECORD PER SCHEDULE SC PER SCHEDULE , Notes to Pharmacist: *Please review for potential replacement for e-prescription and drug interaction check*Auvi-Q 0.3 MG/0.3ML Solution Auto-injector as directed intramuscularly once Nexplanon 68 MG Implant 1 ea subcutaneously once valACYclovir HCl 500 MG Tablet TAKE 1 TABLET BY MOUTH DAILY Oral Taking NASAL WASHES N/A 1 quart of sterilized tap water or distilled water, 1 tsp NaCl, 1 pinch of baking soda as directed intranasally as needed Taking ZYRTEC 10 mg tablet 1 tab(s) orally on days of shots Taking AIRSUPRA 90 mcg-80 mcg/inh aerosol 2 INH inhaled 4 times a day Taking EPINEPHRINE AUTO-INJECTOR 0.3 mg kit as directed intramuscularly once Taking SIT (Traditional) variable - see record variable - see record per schedule subcutaneous per schedule Taking Famotidine 20 MG Tablet 1 tablet Orally 60 minutes prior to SCIT Taking SIT (CLUSTER) variable see record per schedule per schedule Taking ZyrTEC Allergy 10 MG Tablet 1 tab(s) orally on days of shots Taking Airsupra 90 MCG-80 MCG/INH AEROSOL 2 INH INHALED 4 TIMES A DAY , Notes to Pharmacist: *Please review and pick correct strength-formulation from [employer] options. If intended option is not shown, discontinue and re-order from Quick Search*Taking SIT (TRADITIONAL) VARIABLE SEE RECORD PER SCHEDULE SC PER SCHEDULE , Notes to Pharmacist: *Please review for potential replacement for e-prescription and drug interaction check*Taking Auvi-Q 0.3 MG/0.3ML Solution Auto-injector as directed intramuscularly once Taking Nexplanon 68 MG Implant 1 ea subcutaneously once Taking valACYclovir HCl 500 MG Tablet TAKE 1 TABLET BY MOUTH DAILY Oral Not-Taking/PRNAUVI-Q 0.3 mg kit as directed intramuscularly once NEXPLANON 68 mg implant 1 ea subcutaneously once ALBUTEROL (EQV-PROVENTIL HFA) 90 MCG/INH AEROSOL 2 PUFF(S) INHALED EVERY 6 HOURS , Notes to Pharmacist: *Please review for potential replacement for e-prescription and drug interaction check*SIT (TRADITIONAL) VARIABLE SEE RECORD PER SCHEDULE SC PER SCHEDULE , Notes to Pharmacist: *Please review for potential replacement for e-prescription and drug interaction check*PATADAY 0.2% solution 1 gtt in each affected [...] replacement for e-prescription and drug interaction check*Not-Taking/PRN AUVI-Q 0.3 mg kit as directed intramuscularly once Not-Taking/PRN NEXPLANON 68 mg implant 1 ea subcutaneously once Not-Taking/PRN ALBUTEROL (EQV-PROVENTIL HFA) 90 MCG/INH AEROSOL 2 PUFF(S) INHALED EVERY 6 HOURS , Notes to Pharmacist: *Please review for potential replacement for e-prescription and drug interaction check*Not-Taking/PRN SIT (TRADITIONAL) VARIABLE SEE RECORD PER SCHEDULE [...] Information: * Visit Code: * Procedure Codes: 53407 IMMUNOTHERAPY INJECTIONS. * O TECHNICIAN Sign off status: Completed true * Provider: Callie Wade MD Date: 06/07/2024 Generated for Clem mckenzie/Kelvin/Heatheritting on: 06/08/2024 04:15 PM ZY[employer]O TECHNICIAN History and Physical Notes * HPI (History [...]
--- NOTE | ~2025-04-08 | XR_ITS ---
EXAMINATION: [id number], 04/08/2025 15:55 HEALTH NURSE HISTORY: KNEE PAIN, NO INJURY COMPARISON: No comparisons available. Findings: No acute fracture or malalignment. No significant degenerative changes. Soft tissues unremarkable. Impression: No acute fracture or malalignment. Reviewed, dictated and finalized at location P. TH NURSE Impression: No acute fracture or malalignment.
--- OUTSIDE RECORDS SUMMARY | 2025-04-08 16:16 | XMS_ITS | Clinical Summary ---
Author Organization [facility] Address [address] [place] [address] Care Team Providers Care Special Procedure Tech Name Role Phone Wilner Lewis MD Primary Care Provider [phone]- [phone] Medications NEXPLANON 68 MG SC implant 04/01/2020 [...] of Phone Billing Address Personal/Family Self 1980 [phone] (Work) [address] [place] [address] [employer] Care Teams Special Procedure Tech Relationship Specialty Start Date End Date Wilner Lewis MD [address] [address] PCP - General FAMILY PRACTICE 08/16/20
--- OUTSIDE RECORDS SUMMARY | 2025-04-08 16:16 | XMS_ITS | Patient Health Record ---
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 Name Role Phone Galilea Oliveros Primary Care Provider UnavailMichelle Huerta Unavailable [phone] Wilner Wade Unavailable [phone] Klarissa Spicer Unavailable [phone] Allergies No Known Allergies Reason For Referral No Information Medications Medication SIG (Take, Route, Frequency, Duration) Notes Start Date End Date Status valACYclovir HCl 500 MG TAKE 1 TABLET BY MOUTH DAILY Oral; Duration: 30 Days Active Nexplanon 68 MG 1 ea subcutaneously once Active Auvi-Q 0.3 MG/0.3ML as directed intramuscularly once; Duration: 30 days Active Nasacort Allergy 24HR 55 MCG/ACT 2 spray(s) intranasally once a day; Duration: 30 day(s) Not-Taking SIT (TRADITIONAL) VARIABLE PER SCHEDULE SC PER SCHEDULE; Duration: 1 DAYS *Please review for potential replacement for e-prescription and drug interaction check* Active Sudafed 30 MG 1 tab(s) orally every 6 hours, prn Not-Taking Airsupra 90 MCG-80 MCG/INH 2 INH INHALED 4 TIMES A DAY *Please review and pick correct strength-formula tion from [employer]ispan options. If intended option is not shown, discontinue and re-order from Quick Search* Active Benadryl Allergy 25 MG 1 cap(s) orally PRN Not-Taki ng XYZAL 5 mg 1 tablet PO Qday, [...] for e-prescription and drug interaction check* Not-Taking NEXPLANON 68 mg 1 ea subcutaneously once Not-Taking AUVI-Q 0.3 mg as directed intramuscularly once; Duration: 30 days Not-Taking SIT (CLUSTER) VARIABLE PER SCHEDULE SC PER SCHEDULE; Duration: TO BE DETERMINED *Please review for potential replacement for e-prescription and drug interaction check* Not-Taking OLOPATADINE HYDROCHLORIDE 665 MCG/INH 2 SPRAY(S) INTRANASALLY 2 TIMES A DAY, PRN; Duration: 30 DAY(S) *Please review for potential replacement for e-prescription and drug interaction check* Not-Taking AIRSUPRA 90 mcg-80 mcg/inh 2 INH inhaled 4 times a day Active ZYRTEC 10 mg 1 tab(s) orally on days of shots Active NASAL WASHES N/A as directed intranasally as needed; Duration: 30 Active SUDAFED 30 mg 1 tab(s) orally every 6 hours, prn Not-Taking BENADRYL 25 mg 1 cap(s) orally PRN Not-Taking SINGULAIR 10 mg 1 tab(s) orally on days of immunotherapy; Duration: 90 days Not-Taking XYZAL 5 mg 1 tablet PO daily; Duration: 30 Not-Taking ZyrTEC Allergy 10 MG 1 tab(s) orally on days of shots Active ZANTAC 150 150 MG 1 TAB(S) ORALLY ON DAYS OF IMMUNOTHERAPY.; Duration: 90 DAYS *Please review for potential replacement for e-prescription and drug interaction check* Not-Taking SIT (CLUSTER) variable per schedule per schedule; Duration: 1 days Active Singulair 10 MG 1 tab(s) orally on days of immunotherapy; Duration: 90 days Not-Taking Famotidine 20 MG 1 tablet Orally 60 minutes prior to SCIT; Duration: 30 days 03/03/2025 Active Xyzal Allergy 24HR 5 MG 1 tablet PO daily; Duration: 30 Not-Taking SIT (Traditional) variable - see record per schedule subcutaneous per schedule; Duration: 999 days 03/03/2025 Active PROAIR HFA 90 MCG/INH 2 PUFF(S) INHALED 4 TIMES A DAY, PRN *Please review for potential replacement for e-prescription and drug interaction check* Not-Taking EPINEPHRINE AUTO-INJECTOR 0.3 mg as directed intramuscularly once; Duration: 1 days Active Xyzal Allergy 24HR 5 MG 1 tablet PO Qday, PRN Not-Taking Pataday 0.2 % 1 gtt in each affected eye once a day, PRN; Duration: 30 day(s) Not-Taking NASACORT ALLERGY 24HR 55 mcg/inh 2 spray(s) intranasally once a day; Duration: 30 day(s) Not-Taking Immunizations Vaccine Route Administration Date Status [...] Status Risk Notes Problem Shortness of breath (755456040) Shortness of breath (R06.02) Active confirmed Problem Chronic allergic conjunctivitis (61237322) Other chronic allergic conjunctivitis (H10.45) Active confirmed Problem Allergic rhinitis caused by pollen (disorder) (07549304) Allergic rhinitis due to pollen (J30.1) Active confirmed Problem Allergic rhinitis (41664198) Other allergic rhinitis (J30.89) Active confirmed Problem Cough (33860874) Cough (R05) Active confirmed Problem Allergic rhinitis caused by animal hair and dander (848265424774982) Allergic rhinitis due to animal (cat) (dog) hair and dander (J30.81) Active confirmed Problem 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 Vital Signs Blood pressure diastolic 88 mm Hg 03/03/2025 Oximetry 100 % 03/03/2025 Height 64.75 in 03/03/2025 Blood pressure systolic 146 mm Hg 03/03/2025 Weight 157.8 lbs 03/03/2025 BMI 26.46 kg/m2 03/03/2025 Encounters Encounter Location Date Provider Diagnosis [address] [phone] 04/07/2025 Wilner Wade Allergic rhinitis du e to pollen J30.1 ; Other allergic rhinitis J30.89 ; Allergic rhinitis due to animal (cat) (dog) hair and dander J30.81 and Other chronic allergic conjunctivitis H10.45 [facility] [address] [place] [phone] 03/31/2025 Wilner Wade Allergic rhinitis du e to pollen J30.1 ; Other allergic rhinitis J30.89 ; Allergic rhinitis due to animal (cat) (dog) hair and dander J30.81 and Other chronic allergic conjunctivitis H10.45 [facility] [address] [place] [phone] 02/04/2025 Wilner Wade Allergic rhinitis du e to pollen J30.1 ; Other allergic rhinitis J30.89 ; Allergic rhinitis due to animal (cat) (dog) hair and dander J30.81 and Other chronic allergic conjunctivitis H10.[address] [address] 01/06/2025 Wilner Wade Allergic rhinitis du e to pollen J30.1 ; Other allergic rhinitis J30.89 ; Allergic rhinitis due to animal (cat) (dog) hair and dander J30.81 and Other chronic allergic conjunctivitis H10.45 [facility] [address] [place] [phone] 12/10/2024 Wilner Wade Allergic rhinitis du e to pollen J30.1 ; Other allergic rhinitis J30.89 ; Allergic rhinitis due to animal (cat) (dog) hair and dander J30.81 and Other chronic allergic conjunctivitis H10.45 [facility] [address] [place] [phone] 11/10/2024 Wilner Wade Allergic rhinitis du e to pollen J30.1 ; Other allergic rhinitis J30.89 ; Allergic rhinitis due to animal (cat) (dog) hair and dander J30.81 and Other chronic allergic conjunctivitis H10.45 [facility] [address] [place], [place] [address] [address] [place] [phone] 10/13/2024 Wilner Wade Allergic rhinitis du e to pollen J30.1 ; Other allergic rhinitis J30.89 ; Allergic rhinitis due to animal (cat) (dog) hair and dander J30.81 and Other chronic allergic conjunctivitis H10.45 [facility] [address] [place], [place] [address] [address] [place] [phone] 09/11/2024 Wilner Wade Allergic rhinitis du e to pollen J30.1 ; Other allergic rhinitis J30.89 ; Allergic rhinitis due to animal (cat) (dog) hair and dander J30.81 and Other chronic allergic conjunctivitis H10.45 [facility] [address] [place], [place] [email or web address] [address] [place] [phone] 08/13/2024 Wilner Wade Allergic rhinitis du e to pollen J30.1 ; Other allergic rhinitis J30.89 ; Allergic rhinitis due to animal (cat) (dog) hair and dander J30.81 and Other chronic allergic conjunctivitis H10.45 [facility] [address] [place], [place] [email or web address] [address] [place] [phone] 07/16/2024 Wilner Wade Allergic rhinitis du e to pollen J30.1 ; Other allergic rhinitis J30.89 ; Allergic rhinitis due to animal (cat) (dog) hair and dander J30.81 and Other chronic allergic conjunctivitis H10.45 [facility] [address] [place], [place] [email or web address] [address] [place] [phone] 06/12/2024 Wilner Wade Allergic rhinitis du e to pollen J30.1 ; Other allergic rhinitis J30.89 ; Allergic rhinitis due to animal (cat) (dog) hair and dander J30.81 and Other chronic allergic conjunctivitis H10.45 [facility] [address] [place], [place] [address] [address] [place] [phone] 05/14/2024 Wilner Wade Allergic rhinitis du e to pollen J30.1 ; Other allergic rhinitis J30.89 ; Allergic rhinitis due to animal (cat) (dog) hair and dander J30.81 and Other chronic allergic conjunctivitis H10.[address] [address] 05/05/2024 Wilner Wade Allergic rhinitis du e to pollen J30.1 ; Other allergic rhinitis J30.89 ; Allergic rhinitis due to animal (cat) (dog) hair and dander J30.81 and Other chronic allergic conjunctivitis H10.[address] [address] 04/29/2024 Wilner Wade Allergic rhinitis du e to pollen J30.1 ; Other allergic rhinitis J30.89 ; Allergic rhinitis due to animal (cat) (dog) hair and dander J30.81 and Other chronic allergic conjunctivitis H10.[address] [address] 03/03/2025 Klarissa Spicer Allergic rhinitis du e to pollen J30.1 ; Allergic rhinitis due to animal (cat) (dog) hair and dander J30.81 ; Other allergic rhinitis J30.89 ; Other chronic allergic conjunctivitis H10.45 ; Shortness of breath R06.02 ; Wheezing R06.2 and Elevated blood-pressure reading, without diagnosis of hypertension R03.[address] [address] 01/20/2025 Michelle Art [address] [address] 09/11/2024 Michelle Art Assessments Encounter Date Diagnosis (ICD Code) Assessment Notes Treatment Notes Treatment Clinical Notes Section Notes 04/29/2024 Allergic rhinitis due to pollen (ICD-10 [...] 01/06/2025 Other allergic rhinitis (ICD-10 - J30.89) 03/03/2025 Allergic rhinitis due to pollen (ICD-10 - J30.1) Hilda clearly suffers from atopic disease based upon our prior skin testing. Accordingly, we have encouraged her medication regimen, discussed nasal washes and allergy-specific avoidance measures. - Hilda was previously on SCIT from [id number]. She stopped 12 months ago due to [...] as an adjunctive treatment to current regimen 03/31/2025 Allergic rhinitis due to pollen (ICD-10 - J30.1) 03/31/2025 Other allergic rhinitis (ICD-10 - J30.89) 04/07/2025 Allergic rhinitis due to pollen (ICD-10 - J30.1) 04/07/2025 Other allergic rhinitis (ICD-10 - J30.89) 02/04/2025 Allergic rhinitis due to pollen (ICD-10 - J30.1) 02/04/2025 Other allergic rhinitis (ICD-10 - J30.89) 02/04/2025 Allergic rhinitis due to animal (cat) (dog) hair and dander (ICD-10 - J30.81) 04/07/2025 Allergic rhinitis due to animal (cat) (dog) hair and dander (ICD-10 - J30.81) 03/31/2025 Allergic rhinitis due to animal (cat) (dog) hair and dander (ICD-10 - J30.81) 03/03/2025 Other allergic rhinitis (ICD-10 - J30.89) Follow allergen avoidance, meds and continue SCIT as an adjunctive treatment to current regimen 01/06/2025 Allergic rhinitis due to animal (cat) [...] hair and dander (ICD-10 - J30.81) 04/29/2024 Other chronic allergic conjunctivitis (ICD-10 - [...] and continue SCIT as an adjunctive measure 04/07/2025 Other chronic allergic conjunctivitis (ICD-10 - H10.45) 03/31/2025 Other chronic allergic conjunctivitis (ICD-10 - H10.45) 02/04/2025 Other chronic allergic conjunctivitis (ICD-10 - H10.45) 03/03/2025 Shortness of breath (ICD-10 - R06.02) [...] Of Treatment Next Appt Details Provider Name:Wilner Jeanne Wade , 04/15/2025 04:00:00 PM, [address] [facility] [employer], [address], [address], Provider Name:Wilner Jeanne Wade , 05/13/2025 04:00:00 PM, [address], [address], Insurance Providers Payer Name Payer Address Payer Phone Subscriber Number Group Number Insured Name Patient Relationship to Insured Coverage Start Date Coverage End Date [employer] [address] [place] [address] [phone] [id number] Hilda Sofia Self - patient is the [...]
== END 2025-04-08 15:43 | disposition home or self-care (01) ==
PROVIDERS: PCP Nurse Practitioner; Visit Provider Nurse Practitioner
DX: M25.561 Pain in right knee (principal)
CPT/HCPCS: 73560